=== PATIENT | male | born 1980 | race Caucasian/White ===

== ENCOUNTER 2017-11-25 12:10 | Emergency (ER) | payer OTHER ==
[2014-11-16 14:32] VITALS: BMI 31.9
[~2017-11-25 12:10] MED LIST: BYSTOLIC5 MG PO; CHANTIX 1 MG TAB1 MG PO; CLEOCIN HCL150 MG PO; HUMALOG 30100 UNITS/ SC; HYDROCODONE-APA1 TAB PO; LASIX20 MG PO; LEXAPRO10 MG PO; NORVASC10 MG PO; SYNTHROID50 MCG PO; XANAX0.5 MG PO
[2017-11-25 13:08] LABS: BASOPHILS 0.4 % (0-2); EOSINOPHILS 2.9 % (0-7); HEMATOCRIT 33.9 % (42.0-54.0); HEMOGLOBIN 11.4 g/dL (13.5-17.5); IMMATURE GRANULOCYTES 1.2 % (0-5); LYMPHOCYTES 18.4 % (15-50); MCH 27.7 pg (26.0-34.0); MCHC 33.6 g/dL (31.0-37.0); MCV 82.3 fL (80.0-100.0); MEAN PLATELET VOLUME 10.2 fL (7.4-10.4); NEUTROPHILS 69.1 % (40-80); PLATELET COUNT 207 10x3/uL (130-400); RBC 4.12 10x6/uL (4.20-6.10); RDW 13.6 % (11.5-14.5); WBC 10.3 10x3/uL (4.8-10.8)
[2017-11-25 13:28] LABS: ALBUMIN 3.2 g/dL (3.4-5.0); ANION GAP 15.5 mmol/L (8-16); BILIRUBIN - TOTAL 0.26 mg/dL (0.2-1.3); CALCIUM 8.5 mg/dL (8.5-10.1); CARBON DIOXIDE 23.5 mmol/L (21.0-32.0); CREATININE - SERUM 3.3 mg/dL (0.6-1.3); PROTEIN - SERUM 6.3 g/dL (6.4-8.2)
[2017-11-25 15:01] LABS: MAGNESIUM - SERUM 1.6 mg/dL (1.8-2.4)
[2017-11-25 15:20] LABS: KETONE - SERUM NEGATIVE (NEGATIVE); TROPONIN-I < 0.017 ng/mL (0.000-0.060)
== END 2017-11-25 18:05 | disposition home or self-care (01) ==
LOC: D.ER 12:10
PROVIDERS: Emergency Medicine; Physician Assistant
DX: I95.9 Hypotension, unspecified (principal); R42 Dizziness and giddiness; E11.65 Type 2 diabetes mellitus with hyperglycemia; Z79.4 Long term (current) use of insulin; Z96.41 Presence of insulin pump (external) (internal); E87.5 Hyperkalemia; N28.9 Disorder of kidney and ureter, unspecified; I10 Essential (primary) hypertension; I48.91 Unspecified atrial fibrillation; Z95.0 Presence of cardiac pacemaker

== ENCOUNTER 2018-07-11 11:53 | Inpatient (IN) | payer OTHER ==
[2018-07-11] VITALS (17 sets, daily range): BP systolic 68–199; BP diastolic 36–96; BMI 34.7
[~2018-07-11] VITALS: Ht 188 cm; Wt 128.7 kg
--- NOTE | ~2018-07-11 | CN ---
PATIENT NAME:MARY ANNE MERIDA MEDICAL RECORD: [id number] : 78 LOCATION:[facility]2308 ADMIT DATE: 07/11/18 ACCOUNT: [id number] CONSULTING PHYSICIAN: LINK DIAL MD REFERRING PHYSICIAN: LINK DIAL MD DATE OF CONSULTATION: 07/11/2018 MEDICAL CONSULTATION ADMITTING PHYSICIAN: Aston Kapadia MD REASON FOR ADMISSION: Acute onset of hypotension, bradycardia. HISTORY OF PRESENT ILLNESS: The patient is a 37-year-old male who has been a diabetic, on insulin pump since age 6. [address] Leighton Michelle for hypertension and edema management. More recently, he had seen me and told me that he had been switched from Lasix to torsemide and had marked improvement in his diuresis. His peripheral edema had improved and he is quite pleased. His creatinine has been stable at approximately 3.3 for some time. The patient apparently was at work today, his took him to lunch, he did not feel well after work and became so ill that they came into the Emergency Room. While speaking to the Emergency Room physician, he began to twitch and eventually coded. He became hypotensive, was intubated with difficulty by anesthesia. His potassium was found to be 7, creatinine was 4. He was taken emergently to the labor conciliator where a distal 80% RCA lesion was stented by Dr. Kapadia. He remains on the ventilator currently, there is concern for aspiration. I have spoken with his while in the ED. PAST MEDICAL HISTORY: Type 1 diabetes mellitus, chronic renal insufficiency stage III, diabetic retinopathy with macular edema, on Avastin intraocular injections, essential hypertension with negative renal artery MRI earlier in the year, hypothyroidism, hypogonadism, on testosterone replacement. PAST SURGICAL HISTORY: Appendectomy in 2006, had cataract surgery in 2017, cholecystectomy. MEDICATIONS: Current medications are torsemide 20 mg 2 tabs a day, verapamil ER 240 mg b.i.d., Synthroid 125 mcg p.o. q.a.m., Cialis 2.5 mg daily, clonazepam 1 mg one-half tab b.i.d. p.r.n. anxiety, Diovan 80 mg b.i.d., vitamin D 50,000 units 1 p.o. by weekly, Bystolic 20 mg p.o. b.i.d., aspirin 325 mg a day, Veltassa 16.8 grams p.o. daily for hyperkalemia and metolazone 5 mg p.o. daily. ALLERGIES: PENICILLIN. SOCIAL HISTORY: Former smoker, drinks moderate alcohol. He does not use marijuana or illicit drugs. He is . His is a PhD in education and teaches at [employer]. He has 3 children. FAMILY HISTORY: Mother has stage IV lung cancer. Father has history of heart disease. REVIEW OF SYSTEMS: Currently unobtainable from the patient. PHYSICAL EXAMINATION: VITAL SIGNS: BMI of 34.7, temperature 96.4, pulse 50, respirations 16, blood CONSULT REPORT [id number] MARY ANNE MERIDA pressure 103/63, O2 saturation 100% on the ventilator. GENERAL: The patient is currently sedated on the vent. HEENT: Pupils are reactive sluggishly, but equal. Sclerae nonicteric. NECK: Supple. CHEST: Clear. HEART: Bradycardic without murmur. ABDOMEN: Obese, soft, nontender, no organomegaly. EXTREMITIES: Show 2+ pretibial edema in the knees distally bilaterally. NEUROLOGIC: No localizing neurologic signs. The patient is not alert currently. IMAGING: CT of the head did not show acute infarct or bleed. Chest x-ray showed cardiomegaly with pulmonary edema. LABORATORY DATA: White count was 14,000, H&H was 11.5 and 33.2 with normal diff. Sodium 128. Initial potassium was 7.6, after treatment is 4 range currently. Initial glucose was 520 and now 456. Calcium 7.6, magnesium 1.7. Liver functions are normal. Initial cardiac enzymes are normal. Urine is pending. Toxicology negative. Serum ketones. INR 0.95. D-dimer 0.39. The patient went to the labor conciliator, had a distal 80% RCA lesion. That was stented by Dr. Kapadia successfully. ASSESSMENT: RCA critical stenosis post-angioplasty, mjmcu-ov-tewuoze renal insufficiency, severe hyperkalemia, hyperglycemia, type 1 diabetes mellitus, essential hypertension. PLAN: The patient has been seen by renal as well as pulmonary. He will be placed on empiric antibiotics and he will probably need emergent dialysis. Further workup pending clinical course. TRANSINT:[id number] Voice Confirmation ID: [id number] DOCUMENT ID: [id number] LINK DIAL MD at 2024 CC: [id number] DICTATION DATE: 07/11/18 174 STRING WINDING MACHINE OPERATOR: 07/11/18 192 ADM IN [place] [id number] [place] [id number]
--- NOTE | ~2018-07-11 | HP ---
PATIENT: MARY ANNE MERIDA MEDICAL RECORD: [id number] ACCOUNT: [id number] LOCATION:[facility] : 78 ADMISSION DATE: 07/11/18 HISTORY AND PHYSICAL EXAMINATION HISTORY OF PRESENT ILLNESS: A 37-year-old gentleman with family history of chronic renal insufficiency, diabetes mellitus, presented with chest pain and not feeling well, promptly coded in the ER, was emergently intubated. Initial ECG showed some ST elevation inferolaterally. Additionally, marked hyperkalemic as well as hyperglycemic and renal insufficiency, creatinine of 4. He had some seizure activity. CT of the head performed down in the ER showed no intracranial pathology. He is being brought to the laborer [facility] on an urgent basis. PHYSICAL EXAMINATION: GENERAL: Intubated and sedated. VITAL SIGNS: Pulse 70 and regular, blood pressure 116/72. NECK: No bruits noted. HEART: Regular. LUNGS: Fair air excursion. ABDOMEN: Soft, nontender. EXTREMITIES: Pulses actually palpable 2+. No edema. IMPRESSION: Brought to the laborer egg producing farm on an urgent basis. Intervention based on the above. TRANSINT:[id number] Voice Confirmation ID: [id number] DOCUMENT ID: [id number] BRE FULLER MD at 1630 CC: [id number] DICTATION DATE: 07/11/18 1511 GRAIN MIXER: 07/11/18 1523 ADM IN [place] [id number] [place] [address]
--- NOTE | ~2018-07-11 | OP ---
PATIENT NAME: MARY ANNE MERIDA MEDICAL RECORD: [id number] :78 LOCATION:D.[facility] D.2308 ADMISSION DATE:07/11/18 SURGEON: BRE FULLER MD DATE OF OPERATION: 07/11/2018 PROCEDURE: Left heart catheterization, selective coronary angiography, right femoral artery approach. CATHETERS: A 5-Niuean sheath, 5/4 left and right Pallavi, 5/4 pig. The procedure was well tolerated. We proceeded with urgent PTCA stenting. FINDINGS: Left ventriculography in the 30-degree DRISCOLL view: Mild inferior hypokinesis, but overall LV function preserved at 50%. CORONARY ANATOMY: LEFT MAIN: Left main is free of disease. LAD: Free of disease in the diagonal system. CIRCUMFLEX: Free of disease in the marginal system. RIGHT CORONARY ARTERY: Severe diffuse distal stenosis of about 80%. PLAN: Intervention momentarily. DESCRIPTION OF PROCEDURE: A 5-Niuean sheath was exchanged for a 6-Niuean sheath. A hockey stick guide catheter provided excellent guide catheter support followed by a 300 cm Whisper wire, which was placed across the totally occluded right down this portion of vessel. Stents deployed were a 34 mm x 3.0 Blake drug-eluting stent proximally and a 3.0 x 24 mm Blake drug-eluting stent distally. Final angiography shows excellent resolution of 80% diffuse stenosis, no significant residual. KAREEN flow was 3 throughout the procedure. Integrilin was used during the case. Sheath closed with ExoSeal device. The patient was transferred to the ICU in critical condition, hyperkalemic, post-intervention respiratory failure, etc. TRANSINT:[id number] Voice Confirmation ID: [id number] DOCUMENT ID: [id number] BRE FULLER MD at 1630 CC: [id number] DICTATION DATE: 07/11/18 151 STUDIO SET UP WORKER: 07/11/18 1528 [place] [address]
--- NOTE | ~2018-07-11 | OP ---
PATIENT NAME: MARY ANNE MERIDA MEDICAL RECORD: [id number] :78 LOCATION:D[facility] D.2308 ADMISSION DATE:07/11/18 SURGEON: JERRY DIAS MD DATE OF OPERATION: 07/11/2018 PREOPERATIVE DIAGNOSES: 1. Need for IV access. 2. Acute on chronic kidney disease. 3. Hyperkalemia. 4. Acute respiratory failure, on the ventilator. 5. Coronary artery disease, status post PTCA with stenting. 6. Diabetes mellitus. POSTOPERATIVE DIAGNOSES: 1. Need for IV access. 2. Acute on chronic kidney disease. 3. Hyperkalemia. 4. Acute respiratory failure, on the ventilator. 5. Coronary artery disease, status post PTCA with stenting. 6. Diabetes mellitus. PROCEDURE: Left IJ 15-cm Trialysis catheter placement. SURGEON: Jerry Dias MD REPORT OF PROCEDURE: The patient's left chest was prepped and draped in sterile fashion. Using ultrasound guidance, a needle was used to cannulate the left internal jugular vein and a guidewire was advanced with ease. Over this wire, a dilator was placed followed by the Trialysis catheter. This catheter aspirated nonpulsatile dark blood and flushed easily in all 3 ports. This was sutured into place with 4-0 nylons and dressed appropriately. COMPLICATIONS: None. CONDITION: Stable. ANESTHESIA: General endotracheal. BLOOD LOSS: Minimal. Procedure done at the bedside. TRANSINT:[id number] Voice Confirmation ID: [id number] DOCUMENT ID: [id number] JERRY DIAS MD at 1041 CC: [id number] DICTATION DATE: 07/11/18 183 REVENUE DIRECTOR: 07/12/18 0047 ADM IN [facility] [address] [place] [address]
--- NOTE | ~2018-07-11 | HEMODYNAMI ---
PATIENT:MARY ANNE MERIDA MEDICAL RECORD: [id number] : 78 LOCATION:[place] ADMISSION DATE: 07/11/18 Generatedon:07/11/201815:20 Patient name: MARY ANNE MERIDA Patient #: [id number] SSN: : 1980 Date of study: 07/11/2018 Page: Of Hemodynamic Procedure Report Patient Data Patient Demographics First Name: MARY ANNE Gender: Male Last Name: MAGNOLIA : 1980 [facility] Initial: BRO Age: 37 year(s) Patient #: [id number] Race: Unknown Additional ID: [id number] Contact details [address]: [address] [place] [address] [place] State: [place] City: [place] Zip code: [address] Admission Admission Data Admission Date: 07/11/2018 Admission Time: 11:53 Admit Source: Emergency department Procedure Procedure Types Cath Procedure Diagnostic Procedure LHC LHC w/Coronaries PCI Procedure AMI/SVG/FURNACE LOADER PTCA or Stent AMI-BMS/ARY Initial Procedure Description Procedure Date Procedure Date: 07/11/2018 Procedure Start Time: 14:50 Procedure End Time: 15:17 Procedure Staff Name Function Cait Gilbert RT Scrub Wayne Caal RT Semiconductor Processing Technician Evelio Mark RN Nurse Aston Stoddard MD Performing Physician Nicholas Jasso RT Monitor Procedure Data Cath Procedure Fluoroscopy Diagnostic fluoroscopy Total fluoroscopy Time: 3.3 time: 3.3 min min Diagnostic fluoroscopy Total fluoroscopy dose: dose: 362.42 mGy 362.42 mGy Contrast Material Contrast Material Type Amount (ml) Isovue 300 87 Entry Location Entry Primary Successful Side Size Upsize Upsize Entry Closure Succes sful Closure Location (Fr) 1 (Fr) 2 (Fr) Remarks Device Remarks Femoral Right 6 Fr Exoseal artery Short Estimated blood loss: 10 ml Diagnostic catheters Device Type Used For End Catheter Placement MULTIPACK JL 4.0 5Fr Procedure catheter MULTIPACK 3DRC 5Fr Procedure catheter MULTIPACK Pigtail 5 Fr Procedure catheter Procedure Complications No complications Procedure Medications Medication Administration Route Dosage Oxygen 100 Lidocaine 2% added to field 20 Heparin Flush Bag added to field 2 bags (1000units/500ml NS) Fentanyl I.V. 100 mcg Heparin Bolus I.V. 5000 units Integrilin (Bolus I.V. 11.3 ml 2mg/ml) Fentanyl I.V. 100 mcg Fentanyl I.V. 100 mcg Fentanyl I.V. 100 mcg Hemodynamics Rest Heart Rate: 63 (bpm) Pressure Samples Time Site Value (mmHg) Purpose Heart Use Rate(bpm) 14:56 LV 142/21,25 Snapshot 58 Gradients Valve Time Site Site Mean SEP/DFP Peak To Heart Use 1 2 (mmHg) (sec/min) Peak Rate (mmHg) (bpm) Aortic 14:57 LV AO 64 Snapshots Pre Cath Intra NCS Post Cath Vital Signs Time Heart Resp SPO2 etCO2 NIBP (mmHg) Rhythm Pain Sedation Rate (ipm) (%) (mmHg) Status Level (bpm) 14:42:32 62 27 100 0 172/95(142) NSR 0 (11) 6(A) , No pain 14:47:09 63 24 100 0 181/93(151) NSR 0 (11) 6(A) , No pain 14:51:43 60 24 100 0 155/87(131) NSR 0 (11) 6(A) , No pain 14:56:11 57 21 100 0 146/84(116) NSR 0 (11) 6(A) , No pain 15:00:36 58 22 100 0 157/90(125) NSR 0 (11) 6(A) , No pain 15:06:30 63 27 100 0 202/159(169) NSR 0 (11) 6(A) , No pain 15:11:04 59 22 100 0 154/89(127) NSR 0 (11) 6(A) , No pain 15:15:35 58 28 100 0 148/82(115) NSR 0 (11) 10(A) , No pain Medications Time Medication Route Dose Verified Delivered Reason No francisco Effectiveness by by 14:42:43 Oxygen 100% Aston Clancy intubated RichiLeighton Stoddard MD, MD 14:42:58 Lidocaine 2% added 20ml vial Aston Clancy for local to [facility] anesthetic field MD JARVIS 14:43:08 Heparin Flush added 2 bags Aston Clancy used for Bag to [facility] procedure (1000units/500ml field MD JARVIS NS) 14:48:37 Fentanyl I.V. 100 mcg Aston Fraser pt moving St Leighton trinh MD 14:57:04 Heparin Bolus I.V. 5000 Aston Clancy for ve rified units [facility] anticoagulation with eduin JARVIS MD 15:00:10 Integrilin I.V. 11.3 ml Aston Clancy Per physician Wayne stekasey 8.7 (Bolus 2mg/ml) [facility] ml of vial MD JARVIS 15:05:40 Fentanyl I.V. 100 mcg Aston Vides RN, MD 15:12:54 Fentanyl I.V. 100 mcg Aston Vides RN, MD 15:19:51 Fentanyl I.V. 100 mcg Aston Fraser for sedation St Leighton Mark RN, MD Procedure Log Time Note 14:21:[address] FOR CT OF HEAD PER ER PHYSICIAN 14:22:10 Admit Source: Emergency department 14:22:17 ACC Patient presents with STEMI CCS Anginal Class 4--Inability to carry out any physical activity w/o angina. Angina may occur at rest. 14:22:25 Wayne Caal RT(R) sent for patient. Start room use. 14:22:26 Time tracking: Regular hours (M-F 7:00 - 5:00) 14:22:31 Plan of Care:Hemodynamics will remain stable., Cardiac rhythm will remain stable., Comfort level will be maintained., Respiratory function will remain adequate., Patient/ family verbilizes understanding of procedure., Procedure tolerated without complication., Recovers from procedure without complications.. 14:31:25 PATIENT CODED IN ER 14:31:43 Patient received from Other to CCL 3 Alert and oriented. Tansferred to table in Supine position. 14:31:44 Warm blankets applied, and liliana hugger turned on for patient comfort. 14:31:45 Correct patient and procedure confirmed by team. 14:37:46 ECG and BP/O2 sat monitors applied to patient. 14:41:06 Vital chart was started 14:42:43 Oxygen 100% intubated was administered by Aston Stoddard MD; ; 14:42:58 Lidocaine 2% 20ml vial added to field was administered by Aston Stoddard MD; for local anesthetic; 14:43:08 Heparin Flush Bag (1000units/500ml NS) 2 bags added to field was administered by Aston Stoddard MD; used for procedure; 14:43:56 Patient arrives emergently. 14:44:37 Pt arrived to Topographical Engineer intubated and unresponsive. Unable to answer questions. 14:44:41 Baseline sample Acquired. 14:44:45 Rhythm: sinus rhythm 14:44:47 Full Disclosure recording started 14:44:51 Pre-procedure instructions explained to patient. 14:44:51 H&P Date Dictated: 07/11/2018 Emergent; H&P N/A. 14:44:52 Pre-op teaching completed and patient verbalized understanding. 14:44:53 Family in waiting room. 14:44:55 Patient NPO since Midnight. 14:45:08 Is the patient allergic to Iodine/contrast media? No. 14:45:11 Is patient on blood thinner?Unknown 14:45:13 Patient diabetic? Unknown. 14:45:16 Previous problem with sedation/anesthesia? Unknown ? 14:45:17 Snore? Unknown 14:45:18 Sleep apnea? Unknown 14:45:19 Deviated septum? Unknown 14:45:21 Opens mouth fully? Unknown 14:45:22 Sticks out tongue? Unknown 14:45:25 Airway obstruction? Unknown ? 14:45:27 Dentures? Unknown ? 14:45:29 Pre procedure: right dorsailis pedis pulse 1+ Palpable, but thready & weak; easily obliterated 14:45:39 IV patent on arrival in left IJ with 0.9% NaCl at KVO. 14:45:43 Lab results completed and on chart. 14:45:46 Right groin area was prepped with chlora-prep and draped in sterile fashion 14:45:47 Alarms reviewed by R. N. 14:45:48 Sharps counted by scrub and verified by R.N. 14:48:21 Physician arrived 14:48:22 Final Timeout: patient, procedure, and site verified with staff and physician. All members of the team are in agreement. 14:48:22 --------ALL STOP TIME OUT------ 14:48:24 Right groin site verified by team. 14:48:27 Physical assessment completed. ASA score P 5 - A moribund patient who is not expected to survive without the operation as per Aston Stoddard MD. 14:48:37 Fentanyl 100 mcg I.V. was administered by Evelio Mark RN; ; pt moving extremities 14:48:42 Sedation plan: IV Moderate Sedation Medication:Versed, Fentanyl 14:49:57 Use device set Femoral Dx 14:49:58 Bag Decanter (2001S) opened to sterile field. 14:49:58 ACIST Syringe (52362) opened to sterile field. 14:49:59 ACIST Manifold (61892) opened to sterile field. 14:49:59 ACIST Hand Control (33908) opened to sterile field. 14:50:00 Tegaderm 4 x 4 (1626W) opened to sterile field. 14:50:06 DIAGNOSTIC WIRE .035 260cm J wire (799614) opened to sterile field. 14:50:06 Medline Cath Pack (OAOC49354) opened to sterile field. 14:50:07 DIAGNOSTIC Multipack 5Fr catheter set (VG5115) opened to sterile field. 14:50:15 SHEATH Prelude 6Fr 0.035 (ZFQ-8G-66-035) opened to sterile field. 14:50:27 WHISPER 300cm guide wire (0380001ON) opened to sterile field. 14:50:28 INFLATOR Merit BasixCompak (RS4655) opened to sterile field. 14:50:32 Procedure started. 14:50:36 Local anesthetic to right femoral artery with Lidocaine 2% by Aston Stoddard MD.INITIAL ACCESS ONLY 14:50:37 A 6 Fr Short sheath was inserted into the Right Femoral artery 14:50:37 Zero performed for pressure channel P1 14:50:47 Zero performed for pressure channel P1 14:50:52 Zero performed for pressure channel P1 14:51:58 A MULTIPACK JL 4.0 5Fr catheter was advanced over the wire and used for Procedure. 14:52:58 LCA angiography performed. 14:54:45 Catheter exchanged over wire. 14:54:51 A MULTIPACK 3DRC 5Fr catheter was advanced over the wire and used for Procedure. 14:55:04 RCA angiography performed. 14:56:31 Catheter exchanged over wire. 14:56:36 A MULTIPACK Pigtail 5 Fr catheter was advanced over the wire and used for Procedure. 14:56:40 LV hemodynamics recorded. 14:56:48 Injector settings: Ml/sec: 10, Volume: 20, 14:56:53 EF : 50 % 14:57:00 LV gram done using DRISCOLL 14:57:04 Heparin Bolus 5000 units I.V. was administered by Aston Stoddard MD; for anticoagulation; verified with eduin 14:57:26 GUIDE 6FR HS I SH catheter ([id number]) opened to sterile field. 14:57:31 Catheter removed. 14:57:37 6 Fr hs 1 sh guide catheter was inserted over the wire 14:59:00 whisper wire advanced. 14:59:40 Wire advanced across lesion. 15:00:10 Integrilin (Bolus 2mg/ml) 11.3 ml I.V. was administered by Aston Stoddard MD; Per physician; Wasted 8.7 ml of vial 15:00:35 Place stent Inflation Number: 1 A FAITH OTW 3.0 x 26 stent ([id number]) was prepped and advanced across the Mid RCA. The stent was deployed at 14 EZIO for 0:30 (min:sec). 15:00:49 Stent catheter was removed intact over wire. 15:03:25 Place stent Inflation Number: 1 A FAITH OTW 3.0 x 38 stent ([id number]) was prepped and advanced across the Prox RCA. The stent was deployed at 14 EZIO for 0:30 (min:sec). 15:03:47 Stent catheter was removed intact over wire. 15:03:48 Guide catheter removed. 15:03:48 Wire removed. 15:05:28 EXOSEAL 6Fr (EX600) opened to sterile field. 15:05:40 Fentanyl 100 mcg I.V. was administered by Evelio Mark RN; ; 15:07:36 Sheath removed intact; hemostasis achieved with Exoseal to the Right Femoral artery. 15:07:38 Procedure ended.(Physican Out) 15:10:32 Fluoroscopy time 03.30 minutes. 15:10:45 Fluoroscopy dose: 362.42 mGy 15:10:45 Flurop Dose total: 362.42 15:10:50 Contrast amount:Isovue 300 87ml. 15:10:59 Sharps counted by scrub and verified by R.N. 15:11:27 Insertion/operative site no bleeding no hematoma. 15:12:54 Fentanyl 100 mcg I.V. was administered by Evelio Mark RN; ; 15:13:02 Post-op/insertion site Right Femoral artery dressed using a 4 x 4 and Tegaderm. 15:13:05 Post right femoral artery:stable, soft, clean and dry 15:13:07 Post Procedure Pulses reassessed and unchanged 15:13:11 Post-procedure physical assessment completed. ASA score P 5 - A moribund patient who is not expected to survive without the operation as per Aston Stoddard MD. 15:13:35 Post procedure rhythm: sinus rhythm 15:13:38 Estimated blood loss: 10 ml 15:13:40 Post procedure instruction explained to patient.Patient verbalizes understanding. 15:13:53 Patient needs reinforcement of post procedure teaching. 15:14:42 Procedure type changed to Cath procedure, Diagnostic procedure, LHC, LHC w/Coronaries, PCI procedure, AMI/SVG/FURNACE LOADER PTCA or Stent, AMI-BMS/ARY Initial 15:16:28 Procedure and supply charges have been captured, reviewed, submitted and are correct. 15:16:56 Procedure Complication : No complications 15:17:37 Vital chart was stopped 15:17:38 See physician's report for complete and final results. 15:17:39 Report given to ICU. 15:17:42 Patient transfered to ICU with Stretcher. 15:17:43 Full Disclosure recording stopped 15:17:43 Procedure ended. 15:17:47 End room use (Document Last) 15:19:51 Fentanyl 100 mcg I.V. was administered by Evelio Mark RN; for sedation; Intervention Summary Intervention Notes Time ActionType Lesion and Equipment Action# Pressure Duration Attributes Used 15:00:35 Place stent Mid RCA FAITH OTW 3.0 1 14 00:30 x 26 stent ([id number]) 15:03:25 Place stent Prox RCA FAITH OTW 3.0 1 14 00:30 x 38 stent ([id number]) Device Usage Item Name Manufacture Quantity Catalog Hospital Part Current M inimal Lot# / Number Charge Number Stock Stock Serial# Code ACIST Syringe Acist 1 94393 782474 379365 460868 2 0 (48340) Medical Sim[employer] Inc Bag Decanter Microtek 1 151915 48508 097305 5 () Medical Inc. ACIST Hand Acist 1 59146 956192 258331 732880 5 Control (75708) Medical Systems Inc ACIST Manifold Acist 1 68380 591345 909085 798359 5 (09561) Medical Systems Inc Tegaderm 4 x 4 3M 1 1626W 260245 886522 772786 5 (1626W) Medline Cath Cardinal 1 [id number] 222638 46083 094008 5 eIQ [employer] Health ([id number]) DIAGNOSTIC WIRE St Tesfaye 1 226905 808576 427868 678284 3 0 .035 260cm J wire (953309) DIAGNOSTIC Cardinal 1 WA4542 157289 06373 789583 3 0 Multipack 5Fr Health catheter set (HW9283) SHEATH Prelude Merit 1 PXP-9P-93-35 615199 0599907 984674 5 6Fr 0.035 Medical (QXU-4C-77-035) WHISPER 300cm Rodríguez 1 [id number] 281850 258861 802520 5 guide wire Vascular ([id number]) INFLATOR Merit Merit 1 AV1491 631266 386264 467713 1 5 BasMarakana Medical (ET9556) MULTIPACK JL Cardinal 1 784988 5 4.0 5Fr Health catheter MULTIPACK 3DRC Cardinal 1 425129 5 5Fr catheter Health MULTIPACK Cardinal 1 721965 5 Pigtail 5 Fr Health catheter GUIDE 6FR HS I Medtronic 1 [id number] 822065 22944 305999 1 SH catheter ([id number]) FAITH OTW 3.0 x Medtronic 1 [id number] 110838 5149584 483885 5 [id number] 26 stent ([id number]) FAITH OTW 3.0 x Medtronic 1 [id number] 643084 6605654 998649 5 [id number] 38 stent ([id number]) EXOSEAL 6Fr Cardinal 1 EX600 083747 075995 927025 1 0 (EX600) Health Signature Audit [place] Stage Time Signature Unsigned Intra-Procedure 07/11/2018 Nicholas Jasso RT(R) 3:18:10 PM RT(R) 07/11/2018 3:19:11 PM Intra-Procedure 07/11/2018 Nicholas Jasso 3:20:04 PM RT(R) Signatures Monitor : Nicholas Jasso RT Signature : Date : Time : [address] [place] [address]
[2018-07-11] MEDS ORDERED: CALAN120 MG PO (12:21)
[2018-07-11] MEDS ORDERED: DEMADEX20 MG PO (12:21)
[2018-07-11] MEDS ORDERED: KLONOPIN1 MG PO (12:22)
[2018-07-11] MEDS ORDERED: BENICAR20 MG PO (12:22)
[2018-07-11] MEDS ORDERED: VELTASSA8.4 GM PO ×2 (12:22→21:08)
[2018-07-11 12:59] LABS: BASOPHILS 0.4 % (0-2); EOSINOPHILS 2.5 % (0-7); HEMATOCRIT 33.2 % (42.0-54.0); HEMOGLOBIN 11.5 g/dL (13.5-17.5); IMMATURE GRANULOCYTES 1.3 % (0-5); LYMPHOCYTES 21.5 % (15-50); MCH 28.5 pg (26.0-34.0); MCHC 34.6 g/dL (31.0-37.0); MCV 82.2 fL (80.0-100.0); MEAN PLATELET VOLUME 11.1 fL (7.4-10.4); MONOCYTES 6.3 % (2-11); PLATELET COUNT 198 10x3/uL (130-400); RBC 4.04 10x6/uL (4.20-6.10); WBC 14.3 10x3/uL (4.8-10.8)
[2018-07-11 13:16] LABS: KETONE - SERUM NEGATIVE (NEGATIVE)
[2018-07-11 13:42] LABS: INR 0.95 (0.85-1.17); PROTIME 12.2 SECONDS (11.6-15.0)
[2018-07-11 13:52] LABS: ALKALINE PHOSPHATASE 67 U/L (46-116); ALT (SGPT) 64 U/L (10-68); BILIRUBIN - TOTAL 0.28 mg/dL (0.2-1.3); CALC OSMOLALITY 292 mosm/kg (275-300); CALCIUM 7.6 mg/dL (8.5-10.1); CARBON DIOXIDE 24.7 mmol/L (21.0-32.0); CHLORIDE - SERUM 97 mmol/L (98-107); CKMB 2.2 U/L (0.0-3.6); CREATINE KINASE 44 UL (21-232); CREATININE - SERUM 4.2 mg/dL (0.6-1.3); MAGNESIUM - SERUM 1.7 mg/dL (1.8-2.4); SODIUM 128 mmol/L (136-145); TROPONIN-I < 0.017 ng/mL (0.000-0.060); UREA NITROGEN 50 mg/dL (7-18); eGFR NON AFRICAN AMERICAN 17 mL/min (90-120)
[2018-07-11 13:54] LABS: GLUCOSE 520 mg/dL (74-106); POTASSIUM - SERUM 7.6 mmol/L (3.5-5.1)
[2018-07-11] MEDS ORDERED: PAROXETINE HCL10 MG PO (21:06)
[2018-07-12] VITALS (23 sets, daily range): BP systolic 127–195; BP diastolic 57–89; BMI 37.7
[2018-07-12 03:54] LABS: BASOPHILS 0.2 % (0-2); EOSINOPHILS 0.1 % (0-7); HEMATOCRIT 30.2 % (42.0-54.0); HEMOGLOBIN 10.3 g/dL (13.5-17.5); IMMATURE GRANULOCYTES 0.3 % (0-5); LYMPHOCYTES 11.7 % (15-50); MCHC 34.1 g/dL (31.0-37.0); MCV 82.1 fL (80.0-100.0); MEAN PLATELET VOLUME 9.7 fL (7.4-10.4); MONOCYTES 6.5 % (2-11); NEUTROPHILS 81.2 % (40-80); RBC 3.68 10x6/uL (4.20-6.10)
[2018-07-12 03:56] LABS: PLATELET COUNT 130 10x3/uL (130-400); WBC 10.6 10x3/uL (4.8-10.8)
[2018-07-12 04:05] LABS: MAGNESIUM - SERUM 1.3 mg/dL (1.8-2.4)
[2018-07-12 07:05] LABS: ALBUMIN 2.8 g/dL (3.4-5.0); BILIRUBIN - TOTAL 0.34 mg/dL (0.2-1.3); CALCIUM 7.2 mg/dL (8.5-10.1); CARBON DIOXIDE 27.5 mmol/L (21.0-32.0); CREATININE - SERUM 4.3 mg/dL (0.6-1.3); POTASSIUM - SERUM 4.5 mmol/L (3.5-5.1); PROTEIN - SERUM 5.3 g/dL (6.4-8.2)
[2018-07-12 09:54] LABS: APPEARANCE HAZY (CLEAR); BACTERIA FEW /hpf (NONE SEEN); BILIRUBIN NEGATIVE (NEGATIVE); COLOR YELLOW (YELLOW); EPITHELIAL CELLS 0-5 /hpf (0-5); GLUCOSE NEGATIVE (NEGATIVE); KETONE NEGATIVE (NEGATIVE); MUCUS <1+ /lpf (NONE SEEN); NITRITE NEGATIVE (NEGATIVE); PROTEIN 3+ mg/dL (NEGATIVE); RED CELLS - URINE 0-5 /hpf (0-5); UROBILINOGEN NORMAL (NORMAL); WHITE CELLS - URINE OCC /hpf (0-5)
[2018-07-13] VITALS (24 sets, daily range): BP systolic 103–165; BP diastolic 59–75
[2018-07-13 06:07] LABS: BASOPHILS 0.3 % (0-2); EOSINOPHILS 1.8 % (0-7); HEMATOCRIT 26.7 % (42.0-54.0); HEMOGLOBIN 8.8 g/dL (13.5-17.5); IMMATURE GRANULOCYTES 0.2 % (0-5); LYMPHOCYTES 14.3 % (15-50); MCH 27.8 pg (26.0-34.0); MCV 84.5 fL (80.0-100.0); MEAN PLATELET VOLUME 10.4 fL (7.4-10.4); MONOCYTES 6.2 % (2-11); NEUTROPHILS 77.2 % (40-80); PLATELET COUNT 109 10x3/uL (130-400); RBC 3.16 10x6/uL (4.20-6.10); RDW 14.3 % (11.5-14.5); WBC 10.5 10x3/uL (4.8-10.8)
[2018-07-13 06:49] LABS: ALBUMIN 2.2 g/dL (3.4-5.0); ANION GAP 12.6 mmol/L (8-16); BILIRUBIN - TOTAL 0.49 mg/dL (0.2-1.3); CARBON DIOXIDE 24.6 mmol/L (21.0-32.0); CREATININE - SERUM 4.9 mg/dL (0.6-1.3); POTASSIUM - SERUM 4.2 mmol/L (3.5-5.1); PROTEIN - SERUM 5.4 g/dL (6.4-8.2); VANCOMYCIN - RANDOM 10.9 ug/mL (10.0-20.0)
[2018-07-13 06:50] LABS: MAGNESIUM - SERUM 2.1 mg/dL (1.8-2.4); PHOSPHOROUS 4.6 mg/dL (2.5-4.9)
[2018-07-14] VITALS (25 sets, daily range): BP systolic 99–178; BP diastolic 57–87
[2018-07-14 06:03] LABS: BASOPHILS 0.2 % (0-2); EOSINOPHILS 4.2 % (0-7); HEMATOCRIT 24.4 % (42.0-54.0); HEMOGLOBIN 8.2 g/dL (13.5-17.5); IMMATURE GRANULOCYTES 0.6 % (0-5); LYMPHOCYTES 12.1 % (15-50); MCH 28.5 pg (26.0-34.0); MCHC 33.6 g/dL (31.0-37.0); MCV 84.7 fL (80.0-100.0); MEAN PLATELET VOLUME 10.2 fL (7.4-10.4); MONOCYTES 6.9 % (2-11); PLATELET COUNT 111 10x3/uL (130-400); RBC 2.88 10x6/uL (4.20-6.10); RDW 13.9 % (11.5-14.5); WBC 9.7 10x3/uL (4.8-10.8)
[2018-07-14 06:19] LABS: ANION GAP 14.5 mmol/L (8-16); BILIRUBIN - TOTAL 0.51 mg/dL (0.2-1.3); CARBON DIOXIDE 23.6 mmol/L (21.0-32.0); CREATININE - SERUM 5.7 mg/dL (0.6-1.3); PHOSPHOROUS 3.9 mg/dL (2.5-4.9); POTASSIUM - SERUM 4.1 mmol/L (3.5-5.1); PROTEIN - SERUM 5.6 g/dL (6.4-8.2); VANCOMYCIN - RANDOM 23.7 ug/mL (10.0-20.0)
[2018-07-15] VITALS (24 sets, daily range): BP systolic 100–143; BP diastolic 49–79; Ht 188 cm; Wt 128.7 kg
[2018-07-15 04:26] LABS: BASOPHILS 0.3 % (0-2); EOSINOPHILS 5.8 % (0-7); HEMATOCRIT 25.5 % (42.0-54.0); HEMOGLOBIN 8.5 g/dL (13.5-17.5); IMMATURE GRANULOCYTES 0.8 % (0-5); LYMPHOCYTES 15.8 % (15-50); MCH 28.3 pg (26.0-34.0); MCHC 33.3 g/dL (31.0-37.0); MEAN PLATELET VOLUME 10.4 fL (7.4-10.4); MONOCYTES 8.5 % (2-11); NEUTROPHILS 68.8 % (40-80); PLATELET COUNT 133 10x3/uL (130-400); RDW 14.1 % (11.5-14.5); WBC 8.7 10x3/uL (4.8-10.8)
[2018-07-15 04:50] LABS: BILIRUBIN - TOTAL 0.52 mg/dL (0.2-1.3); CALCIUM 7.3 mg/dL (8.5-10.1); CARBON DIOXIDE 24.9 mmol/L (21.0-32.0); CREATININE - SERUM 5.8 mg/dL (0.6-1.3); POTASSIUM - SERUM 3.9 mmol/L (3.5-5.1); PROTEIN - SERUM 6.1 g/dL (6.4-8.2); VANCOMYCIN - RANDOM 17.9 ug/mL (10.0-20.0)
[2018-07-16] VITALS (25 sets, daily range): BP systolic 103–150; BP diastolic 49–88
[2018-07-16 05:45] LABS: BASOPHILS 0.1 % (0-2); EOSINOPHILS 3.9 % (0-7); HEMATOCRIT 25.5 % (42.0-54.0); HEMOGLOBIN 8.3 g/dL (13.5-17.5); IMMATURE GRANULOCYTES 1.7 % (0-5); LYMPHOCYTES 8.2 % (15-50); MCH 27.9 pg (26.0-34.0); MCHC 32.5 g/dL (31.0-37.0); MCV 85.9 fL (80.0-100.0); MEAN PLATELET VOLUME 10.3 fL (7.4-10.4); MONOCYTES 7.3 % (2-11); NEUTROPHILS 78.8 % (40-80); PLATELET COUNT 143 10x3/uL (130-400); RBC 2.97 10x6/uL (4.20-6.10); RDW 14.1 % (11.5-14.5); WBC 9.3 10x3/uL (4.8-10.8)
[2018-07-16 06:04] LABS: ALBUMIN 2.1 g/dL (3.4-5.0); BILIRUBIN - TOTAL 0.58 mg/dL (0.2-1.3); CALCIUM 7.8 mg/dL (8.5-10.1); CARBON DIOXIDE 21.3 mmol/L (21.0-32.0); PROTEIN - SERUM 6.4 g/dL (6.4-8.2); VANCOMYCIN - RANDOM 14.9 ug/mL (10.0-20.0)
[2018-07-16 06:05] LABS: POTASSIUM - SERUM 5.3 mmol/L (3.5-5.1)
[2018-07-17] VITALS (24 sets, daily range): BP systolic 123–186; BP diastolic 57–95
[2018-07-17 04:53] LABS: BASOPHILS 0.2 % (0-2); EOSINOPHILS 3.7 % (0-7); HEMATOCRIT 26.3 % (42.0-54.0); HEMOGLOBIN 8.5 g/dL (13.5-17.5); IMMATURE GRANULOCYTES 3.9 % (0-5); LYMPHOCYTES 7.9 % (15-50); MCH 27.6 pg (26.0-34.0); MCHC 32.3 g/dL (31.0-37.0); MCV 85.4 fL (80.0-100.0); MEAN PLATELET VOLUME 10.4 fL (7.4-10.4); MONOCYTES 11.6 % (2-11); NEUTROPHILS 72.7 % (40-80); PLATELET COUNT 164 10x3/uL (130-400); RBC 3.08 10x6/uL (4.20-6.10); RDW 13.9 % (11.5-14.5)
[2018-07-17 05:23] LABS: ANION GAP 16.3 mmol/L (8-16); CARBON DIOXIDE 25.4 mmol/L (21.0-32.0); CREATININE - SERUM 7.4 mg/dL (0.6-1.3); MAGNESIUM - SERUM 2.3 mg/dL (1.8-2.4); POTASSIUM - SERUM 4.7 mmol/L (3.5-5.1); VANCOMYCIN - RANDOM 19.4 ug/mL (10.0-20.0)
[2018-07-17 07:37] LABS: HEPATITIS C ANTIBODY <0.1 (0.0-0.9)
[2018-07-18] VITALS (23 sets, daily range): BP systolic 117–218; BP diastolic 69–90
[2018-07-18 04:15] LABS: HEPATITIS BE ANTIGEN Negative (Negative)
[2018-07-18 04:18] LABS: BASOPHILS 0.3 % (0-2); EOSINOPHILS 5.5 % (0-7); HEMATOCRIT 28.5 % (42.0-54.0); HEMOGLOBIN 9.5 g/dL (13.5-17.5); IMMATURE GRANULOCYTES 6.9 % (0-5); LYMPHOCYTES 13.4 % (15-50); MCH 27.9 pg (26.0-34.0); MCHC 33.3 g/dL (31.0-37.0); MCV 83.6 fL (80.0-100.0); MEAN PLATELET VOLUME 10.3 fL (7.4-10.4); NEUTROPHILS 63.9 % (40-80); PLATELET COUNT 196 10x3/uL (130-400); RBC 3.41 10x6/uL (4.20-6.10); RDW 13.7 % (11.5-14.5); WBC 12.1 10x3/uL (4.8-10.8)
[2018-07-18 04:39] LABS: ANION GAP 16.6 mmol/L (8-16); CALCIUM 8.3 mg/dL (8.5-10.1); MAGNESIUM - SERUM 2.3 mg/dL (1.8-2.4); VANCOMYCIN - RANDOM 12.1 ug/mL (10.0-20.0)
[2018-07-18 04:41] LABS: CREATININE - SERUM 5.5 mg/dL (0.6-1.3); POTASSIUM - SERUM 3.6 mmol/L (3.5-5.1)
[2018-07-19] VITALS (24 sets, daily range): BP systolic 116–189; BP diastolic 65–96
[2018-07-19 03:53] LABS: ANION GAP 14.6 mmol/L (8-16); CARBON DIOXIDE 24.8 mmol/L (21.0-32.0); CREATININE - SERUM 6.5 mg/dL (0.6-1.3); MAGNESIUM - SERUM 2.6 mg/dL (1.8-2.4); POTASSIUM - SERUM 3.4 mmol/L (3.5-5.1)
[2018-07-19 04:01] LABS: HEMATOCRIT 25.7 % (42.0-54.0); LYMPHOCYTES 13.8 % (15-50); MCH 28.5 pg (26.0-34.0); MEAN PLATELET VOLUME 9.4 fL (7.4-10.4); NEUTROPHILS 75.3 % (40-80); PLATELET COUNT 233 10x3/uL (130-400); RBC 3.16 10x6/uL (4.20-6.10); WBC 12.6 10x3/uL (4.8-10.8)
[2018-07-19 04:02] LABS: MCV 81.3 fL (80.0-100.0)
[2018-07-20] VITALS (24 sets, daily range): BP systolic 101–157; BP diastolic 59–76
[2018-07-20 00:01] LABS: HEMATOCRIT 22.4 % (42.0-54.0); HEMOGLOBIN 7.7 g/dL (13.5-17.5)
[2018-07-20 06:19] LABS: BASOPHILS 0.4 % (0-2); EOSINOPHILS 5.3 % (0-7); HEMATOCRIT 22.6 % (42.0-54.0); HEMOGLOBIN 7.6 g/dL (13.5-17.5); IMMATURE GRANULOCYTES 5.6 % (0-5); LYMPHOCYTES 15.7 % (15-50); MCH 27.6 pg (26.0-34.0); MCHC 33.6 g/dL (31.0-37.0); MCV 82.2 fL (80.0-100.0); MEAN PLATELET VOLUME 10.1 fL (7.4-10.4); MONOCYTES 7.8 % (2-11); NEUTROPHILS 65.2 % (40-80); PLATELET COUNT 264 10x3/uL (130-400); RBC 2.75 10x6/uL (4.20-6.10); RDW 13.5 % (11.5-14.5); WBC 15.5 10x3/uL (4.8-10.8)
[2018-07-20 06:36] LABS: ANION GAP 16.9 mmol/L (8-16); CALCIUM 7.7 mg/dL (8.5-10.1); CARBON DIOXIDE 24.6 mmol/L (21.0-32.0); CREATININE - SERUM 5.6 mg/dL (0.6-1.3); MAGNESIUM - SERUM 2.4 mg/dL (1.8-2.4); POTASSIUM - SERUM 3.5 mmol/L (3.5-5.1)
[2018-07-21] VITALS (24 sets, daily range): BP systolic 97–163; BP diastolic 53–85
[2018-07-21 06:26] LABS: BASOPHILS 0.4 % (0-2); EOSINOPHILS 5.7 % (0-7); HEMATOCRIT 22.6 % (42.0-54.0); HEMOGLOBIN 7.6 g/dL (13.5-17.5); IMMATURE GRANULOCYTES 4.5 % (0-5); LYMPHOCYTES 16.5 % (15-50); MCH 27.6 pg (26.0-34.0); MCHC 33.6 g/dL (31.0-37.0); MCV 82.2 fL (80.0-100.0); MEAN PLATELET VOLUME 9.8 fL (7.4-10.4); MONOCYTES 6.2 % (2-11); NEUTROPHILS 66.7 % (40-80); PLATELET COUNT 291 10x3/uL (130-400); RBC 2.75 10x6/uL (4.20-6.10); RDW 13.7 % (11.5-14.5); WBC 16.8 10x3/uL (4.8-10.8)
[2018-07-21 06:36] LABS: ANION GAP 18.3 mmol/L (8-16); CALCIUM 7.7 mg/dL (8.5-10.1); CARBON DIOXIDE 23.1 mmol/L (21.0-32.0); CREATININE - SERUM 6.8 mg/dL (0.6-1.3); MAGNESIUM - SERUM 2.8 mg/dL (1.8-2.4); POTASSIUM - SERUM 3.4 mmol/L (3.5-5.1)
[2018-07-22] VITALS (13 sets, daily range): BP systolic 112–149; BP diastolic 62–83
[2018-07-22 04:21] LABS: HEMATOCRIT 22.6 % (42.0-54.0); HEMOGLOBIN 7.8 g/dL (13.5-17.5); MCH 28.1 pg (26.0-34.0); MCHC 34.5 g/dL (31.0-37.0); MCV 81.3 fL (80.0-100.0); MEAN PLATELET VOLUME 9.8 fL (7.4-10.4); PLATELET COUNT 369 10x3/uL (130-400); RBC 2.78 10x6/uL (4.20-6.10); RDW 13.5 % (11.5-14.5); WBC 24.5 10x3/uL (4.8-10.8)
[2018-07-22 04:32] LABS: ANION GAP 13.5 mmol/L (8-16); CALCIUM 7.8 mg/dL (8.5-10.1); CARBON DIOXIDE 26.5 mmol/L (21.0-32.0); CREATININE - SERUM 7.1 mg/dL (0.6-1.3)
[2018-07-22 04:39] LABS: PHOSPHOROUS 8.4 mg/dL (2.5-4.9)
[2018-07-22 05:17] LABS: EOSINOPHILS 1 % (0-7); LYMPHOCYTES 17 % (15-50); MONOCYTES 5 % (2-11); NEUTROPHILS 67 % (40-80); PLATELET ESTIMATE NORMAL
== END 2018-07-22 15:24 | disposition short-term general hospital (02) | DRG 246 ==
LOC: D.ER 11:53 → D.CATH 11:53 → EDSTATUS 14:38 → D.ICU 15:40
PROVIDERS: Family Medicine; Internal Medicine Interventional Cardiology; Internal Medicine Nephrology; Internal Medicine Pulmonary Disease; Student in an Organized Health Care Education/Training Program
PROC: 05HN33Z Insertion of Infusion Device into Left Internal Jugular Vein, Percutaneous Approach (ICD-10-PCS; 2018-07-11)
PROC: B2111ZZ Fluoroscopy of Multiple Coronary Arteries using Low Osmolar Contrast (ICD-10-PCS; 2018-07-11)
PROC: B2151ZZ Fluoroscopy of Left Heart using Low Osmolar Contrast (ICD-10-PCS; 2018-07-11)
PROC: 4A023N7 Measurement of Cardiac Sampling and Pressure, Left Heart, Percutaneous Approach (ICD-10-PCS; 2018-07-11)
PROC: 5A1955Z Respiratory Ventilation, Greater than 96 Consecutive Hours (ICD-10-PCS; 2018-07-11)
PROC: 027035Z Dilation of Coronary Artery, One Artery with Two Drug-eluting Intraluminal Devices, Percutaneous Approach (ICD-10-PCS; principal; 2018-07-11 11:30)
PROC: 0BH17EZ Insertion of Endotracheal Airway into Trachea, Via Natural or Artificial Opening (ICD-10-PCS; 2018-07-11 11:30)
PROC: 05HM33Z Insertion of Infusion Device into Right Internal Jugular Vein, Percutaneous Approach (ICD-10-PCS; 2018-07-20)
DX: I24.9 Acute ischemic heart disease, unspecified (principal); I46.2 Cardiac arrest due to underlying cardiac condition; J96.90 Respiratory failure, unspecified, unspecified whether with hypoxia or hypercapnia; J69.0 Pneumonitis due to inhalation of food and vomit; E10.10 Type 1 diabetes mellitus with ketoacidosis without coma; N18.4 Chronic kidney disease, stage 4 (severe); N17.9 Acute kidney failure, unspecified; J81.1 Chronic pulmonary edema; E87.1 Hypo-osmolality and hyponatremia; G40.89 Other seizures; K56.7 Ileus, unspecified; E10.22 Type 1 diabetes mellitus with diabetic chronic kidney disease; I12.9 Hypertensive chronic kidney disease with stage 1 through stage 4 chronic kidney disease, or unspecified chronic kidney disease; Z96.41 Presence of insulin pump (external) (internal); E03.9 Hypothyroidism, unspecified; E29.1 Testicular hypofunction; I25.10 Atherosclerotic heart disease of native coronary artery without angina pectoris; D64.9 Anemia, unspecified; R55 Syncope and collapse; I95.9 Hypotension, unspecified; R41.82 Altered mental status, unspecified; D69.6 Thrombocytopenia, unspecified; D63.1 Anemia in chronic kidney disease; E83.42 Hypomagnesemia; K59.00 Constipation, unspecified; R48.2 Apraxia; D72.829 Elevated white blood cell count, unspecified; E10.649 Type 1 diabetes mellitus with hypoglycemia without coma

== ENCOUNTER → 2019-01-10 08:18 | Outpatient (CLI) | payer OTHER ==
[2018-07-15 12:09] VITALS: BMI 37.7
[~2019-01-10 08:18] MED LIST changes: +BENICAR20 MG PO; +CALAN120 MG PO; +DEMADEX20 MG PO; +KLONOPIN1 MG PO; +PAROXETINE HCL10 MG PO; +VELTASSA8.4 GM PO
--- NOTE | 2019-01-16 11:54 | ST ---
PATIENT:MARY ANNE MERIDA MEDICAL RECORD: [id number] SEX: M LOCATION:[facility] ORDER #: ADMISSION DATE: 01/10/19 AGE OF PATIENT: 38 REFERRING PHYSICIAN: INTERPRETING PHYSICIAN: DALE SPICER MD DATE OF SERVICE: 01/10/2019 PROCEDURE: Nuclear stress test. INDICATION: Angina, coronary artery disease, hypertension, hyperlipidemia, diabetes. He was exercised on standard Lexiscan protocol with 32 mCi of sestamibi injected at peak stress, 11 mCi were used previously for rest images. FINDINGS: Gated SPECT reveals preserved ejection fraction at 54% with good wall motion and thickening and brightening throughout all segments. SPECT imaging Cardiolite was used as myocardial fusion agent. There is homogeneous uptake throughout all segments at rest and stress with no evidence of inducible ischemia or previous infarction. OVERALL IMPRESSION: 1. This is a normal nuclear stress test with no evidence of inducible ischemia or previous infarction. 2. Gated SPECT reveals a preserved ejection fraction at 54%. In this patient with ongoing symptomatology, the current scan does not suggest the presence of hemodynamically significant coronary artery disease. Evaluate noncardiac etiology of chest pain. TRANSINT:[id number] Voice Confirmation ID: [id number] DOCUMENT ID: [id number] DALE SPICER MD at 1154 CC: [id number] DICTATION DATE: 01/10/19 1247 RUBBER PRODUCTION MACHINE OPERATOR: 01/11/19 0054 DEP CLI 01/10/19 [facility] [address] [place] [address]
== END | disposition home or self-care (01) ==
LOC: D.HCCARDIO 08:18
PROVIDERS: ATTEND Internal Medicine Interventional Cardiology
DX: I25.10 Atherosclerotic heart disease of native coronary artery without angina pectoris (principal)

== ENCOUNTER 2019-01-21 21:46 | Emergency (ER) | payer OTHER ==
[~2019-01-21] VITALS: Ht 188 cm; Wt 109.1 kg
[2019-01-21 21:55] VITALS: Ht 188 cm; Wt 109.1 kg
[2019-01-22 00:06] LABS: HEMATOCRIT 30.3 % (42.0-54.0); HEMOGLOBIN 10.6 g/dL (13.5-17.5); LYMPHOCYTES 29.7 % (15-50); MCV 80.2 fL (80.0-100.0); MEAN PLATELET VOLUME 9.3 fL (7.4-10.4); NEUTROPHILS 62.2 % (40-80); PLATELET COUNT 208 10x3/uL (130-400); RBC 3.78 10x6/uL (4.20-6.10); RDW 14.6 % (11.5-14.5); WBC 8.6 10x3/uL (4.8-10.8)
[2019-01-22 00:15] LABS: ALBUMIN 2.6 g/dL (3.4-5.0); ANION GAP 13.6 mmol/L (8-16); BILIRUBIN - TOTAL 0.18 mg/dL (0.2-1.3); CARBON DIOXIDE 25.8 mmol/L (21.0-32.0); CREATININE - SERUM 3.7 mg/dL (0.6-1.3); POTASSIUM - SERUM 4.4 mmol/L (3.5-5.1)
[2019-01-22 01:21] VITALS: BP 155/79
== END 2019-01-22 01:22 | disposition home or self-care (01) ==
LOC: D.ER 21:46
PROVIDERS: Family Medicine
DX: I12.9 Hypertensive chronic kidney disease with stage 1 through stage 4 chronic kidney disease, or unspecified chronic kidney disease (principal); N18.9 Chronic kidney disease, unspecified; E11.9 Type 2 diabetes mellitus without complications; G47.33 Obstructive sleep apnea (adult) (pediatric)

== ENCOUNTER 2019-03-14 06:00 | Day surgery (SDC) | payer OTHER ==
[2019-03-13 16:32] LABS: ANION GAP 13.8 mmol/L (8-16); CALCIUM 8.6 mg/dL (8.5-10.1); CARBON DIOXIDE 24.7 mmol/L (21.0-32.0); CREATININE - SERUM 4.2 mg/dL (0.6-1.3); POTASSIUM - SERUM 4.5 mmol/L (3.5-5.1)
[2019-03-13 16:38] LABS: INR 1.14 (0.85-1.17)
[~2019-03-14] VITALS: Ht 188 cm; Wt 113.4 kg
[~2019-03-14 06:00] MED LIST changes: +BAYER CHEWABLE81 MG PO; +FERROUS SULFAT325 MG PO; +FOLIC ACID1 MG PO; +HYDRALAZINE HCL50 MG PO; +LIPITOR80 MG PO; +RENVELA800 MG PO; +VITAMIN B-625 MG PO
[2019-03-14 06:18] LABS: BASOPHILS 0.5 % (0-2); EOSINOPHILS 2.8 % (0-7); HEMATOCRIT 32.2 % (42.0-54.0); HEMOGLOBIN 10.9 g/dL (13.5-17.5); IMMATURE GRANULOCYTES 0.4 % (0-5); LYMPHOCYTES 23.7 % (15-50); MCH 27.4 pg (26.0-34.0); MCHC 33.9 g/dL (31.0-37.0); MCV 80.9 fL (80.0-100.0); MEAN PLATELET VOLUME 9.4 fL (7.4-10.4); MONOCYTES 7.6 % (2-11); PLATELET COUNT 217 10x3/uL (130-400); RBC 3.98 10x6/uL (4.20-6.10); RDW 13.9 % (11.5-14.5)
[2019-03-14 06:39] VITALS: Ht 188 cm; Wt 113.4 kg
[2019-03-14] MEDS ORDERED: HYDROCODON-ACE1 EAC7 PO (10:33)
--- NOTE | 2019-03-14 10:50 | NUR ---
REC'D FROM RR. SLING TO LUE DUE TO EFFECTS OF NERVE BLOCK. DRESSING CDI. FAMILY AT BEDSIDE. COFFEE AND ICE WATER BROUGHT TO PATIENT. DR CARRERO TALKING WITH PATIENT AND SPOUSE.
--- NOTE | 2019-03-14 11:15 | NUR ---
ANTONIO SANZ SERVED TO PATIENT. FAMILY AT BEDSIDE.
--- NOTE | 2019-03-14 11:30 | NUR ---
AMBULATED TO BATHROOM AND VOIDED WITHOUT DIFFICULTY. SPOUSE AT BEDSIDE,
--- NOTE | 2019-03-14 11:50 | NUR ---
TOLERATED FL TRAY.
--- NOTE | 2019-03-14 12:00 | NUR ---
WRITTEN AND VERBAL DC INST. GIVEN TO PT ALONG WITH RX. VERBALIZED UNDERSTANDING.
--- NOTE | 2019-03-14 12:05 | NUR ---
DC'D HOME WITH FAMILY VIA PRIVATE VEHICLE. TAKEN TO VEHICLE VIA WC. STABLE AT TIME OF DC.
--- NOTE | 2019-03-14 14:30 | OP ---
PATIENT NAME: MARY ANNE ROSALES MEDICAL RECORD: [id number] :78 LOCATION:D.OPS ADMISSION DATE: SURGEON: YANIRA CARRERO MD DATE OF OPERATION: 03/14/2019 REFERRED BY: Dolly Michelle MD and Mary Lee MD PREOPERATIVE DIAGNOSIS: Chronic kidney disease V. POSTOPERATIVE DIAGNOSIS: Chronic kidney disease V. OPERATION PERFORMED: Creation of a left arm proximal radial artery to median antebrachial vein arteriovenous fistula. SURGEON: Yanira Carrero MD ANESTHESIA: Regional nerve block and TIVA per SECURITY GUARDS DISPATCHER. PREOPERATIVE NOTE: Mr. Rosales is a 38-year-old type 1 diabetic with generalized atherosclerotic disease in addition to severe renal impairment. It is anticipated that he will require dialysis and he was referred to me for long-term dialysis access. DESCRIPTION OF PROCEDURE: Under nerve block and TIVA, the patient's arm was prepped and draped in a sterile manner. I first examined him with Duplex ultrasound after applying nitroglycerin paste to the intact skin of his arm and forearm, and using a Yamileth drain as a proximal venous tourniquet. I was surprised to see such a paucity of usable veins. The veins that he has are all very very small and I did not see an adequate cephalic vein above or below the elbow, nor even an adequate basilic vein in the region of the elbow to permit primary fistula. He did have a good proximal radial artery and the median antebrachial vein, draining the lateral aspect of the forearm was patent and was the largest vein he had. I also confirmed that he does have normal size axillary vein and artery. I elected to go ahead with the PRA fistula and made a longitudinal incision just beneath the antecubital space. The artery and vein were dissected free and controlled with Silastic loops. They were approximated [id number] and occluded with the Silastic loops. A venotomy approximately 5-mm in length was made and the vein flushed proximally and distally with heparinized saline. Distal flow was poor due intact valves. The artery was then opened and it also was flushed proximally and distally, and the patient was at that time also given 2000 units of heparin systemically. The anastomosis was performed with continuous running 7-0 Prolene and when completed and the occluding loops were released, excellent flow developed in the fistula and there was a good bruit and continuous pulsatile flow on Doppler. The wound was irrigated with Ancef and gentamicin solution, it was then closed without the use of a drain approximating subcutaneous tissues with interrupted inverted 3-0 Vicryl. Skin was closed with running intracuticular 4-0 Monocryl and Dermabond glue. The incision was then further dressed with Maxorb Ag, Tegaderm, and Cavilon skin prep. He was awakened and taken back to the recovery room. Blood loss during the operation was nil. No drain was used. Sponges, instruments, and needles were accounted for and no surgical specimen was submitted for histopathology. OPERATIVE REPORT [id number] MARY ANNE ROSALES BRO I will plan to see Mr. Rosales back in my office in the next week or two. He can leave the original operative dressing alone and intact as long as he wishes or in 4-5 days remove it, and start washing it daily with soap and water at the incision that he has. He is given a prescription for 10 tablets of Kula 5/325, advised to take 1 every 4 hours p.r.n. for pain. TRANSINT:[id number] Voice Confirmation ID: [id number] DOCUMENT ID: [id number] YANIRA CARRERO MD at 1430 CC: MARY LEE MD and DOLLY MICHELLE [id number] DICTATION DATE: 03/14/19 1052 FIRE EXTINGUISHER INSPECTOR: 03/14/19 1215 [facility] 03/14/19 [facility] [address] [place] [address]
== END 2019-03-14 12:05 | disposition home or self-care (01) ==
LOC: D.OPS 06:00 → D.PAN 08:00 → D.OPS 12:05
PROVIDERS: Surgery; ATTEND Internal Medicine Nephrology
DX: E10.22 Type 1 diabetes mellitus with diabetic chronic kidney disease (principal); N18.5 Chronic kidney disease, stage 5; Z01.812 Encounter for preprocedural laboratory examination

== ENCOUNTER 2019-04-21 13:44 | Inpatient (IN) | payer OTHER ==
[~2019-04-21] VITALS: Ht 188 cm; Wt 110.9 kg
[~2019-04-21 13:44] MED LIST changes: +HYDROCODON-ACE1 EAC7 PO
--- NOTE | 2019-04-21 14:29 | NUR ---
ARRIVES TO ROOM VIA AMBULATORY FROM DOCTOR MITUL'S OFFICE. ALERT AND ORIENTED X4. STANDING WEIGHT ON SCALE 'LUIZ' 261lbs. RESERVE LT ARM SIGNS PLACED ABOVE BED AND ON DOOR. LT ARM FISTULA. RT CHEST HEMOSPLIT PLACED AT CLINIC. DRESSING INTACT. DENIES SOB OR PAIN. CONTINUE ADMISSION PROCESS. REFUSE SCDs. UP AD ROSELIA. CONTINUE PLAN OF CARE AND SAFETY PRECAUTIONS.
[2019-04-21 14:51] VITALS: BP 152/60; BMI 33.6
[2019-04-21 15:27] VITALS: BP 152/60
[2019-04-21 16:43] LABS: BASOPHILS 0.5 % (0-2); EOSINOPHILS 3.2 % (0-7); HEMATOCRIT 21.9 % (42.0-54.0); HEMOGLOBIN 7.6 g/dL (13.5-17.5); IMMATURE GRANULOCYTES 1.2 % (0-5); LYMPHOCYTES 33.9 % (15-50); MCH 27.5 pg (26.0-34.0); MCHC 34.7 g/dL (31.0-37.0); MCV 79.3 fL (80.0-100.0); MEAN PLATELET VOLUME 9.5 fL (7.4-10.4); NEUTROPHILS 48.2 % (40-80); PLATELET COUNT 143 10x3/uL (130-400); RBC 2.76 10x6/uL (4.20-6.10); RDW 13.4 % (11.5-14.5)
[2019-04-21 17:35] LABS: ANION GAP 12.7 mmol/L (8-16); CALCIUM 8.2 mg/dL (8.5-10.1); CARBON DIOXIDE 23.7 mmol/L (21.0-32.0); CREATININE - SERUM 6.2 mg/dL (0.6-1.3); POTASSIUM - SERUM 4.4 mmol/L (3.5-5.1)
[2019-04-21 20:00] VITALS: BP 182/66
--- NOTE | 2019-04-21 20:00 | NUR ---
ROUNDS COMPLETED, VSS WITH SBP OF 182. AAOX4, NO S/S OF DISTRESS. PT LAYING IN BED WITH EYES OPEN. SPOUSE BROUGHT CPAP MACHINE FROM HOME STATES HE USES IT AT HOME. BP MEDS GIVEN ALONGSIDE OTHER MEDICATIONS. WILL CPOC. CL IN REACH WILL CPOC.
[2019-04-22] VITALS: BP 145/59
[2019-04-22 04:00] VITALS: BP 157/70
[2019-04-22 06:56] LABS: ANION GAP 15.3 mmol/L (8-16); CALCIUM 7.9 mg/dL (8.5-10.1); CARBON DIOXIDE 22.6 mmol/L (21.0-32.0); CREATININE - SERUM 6.9 mg/dL (0.6-1.3); POTASSIUM - SERUM 3.9 mmol/L (3.5-5.1)
[2019-04-22 09:56] VITALS: BP 125/74
--- NOTE | 2019-04-22 12:03 | MORECARE ---
CASE MANAGEMENT DISCHARGE SUMMARY PATIENT: MARY ANNE MERIDA UNIT: [id number] ADM DATE: 04/21/19 AGE: 38 : 79 SEX: M ROOM/BED: D.1786 AUTHOR: FLORENTIN GLASGOW PHYSICIAN: REFERRING PHYSICIAN: MAGNO SANTO MD DATE OF SERVICE: 04/22/19 Discharge Plan Patient Name: MARY ANNE MERIDA Facility: [facility]:[place] : 1980 Planned Disposition: Home Anticipated Discharge Date: Discharge Date: Expected LOS: Initial Reviewer: [email or web address] Initial Review Date: 04/22/2019 Generated: 04/22/19 1:02 pm Comments DCP- Discharge Planning Updated by [email or web address]: Silvano Oviedo on 04/22/19 11:[address] Patient Name: MARY ANNE MERIDA Admission Status: Urgent Accout number: [id number] Admission Date: 04-21-2019 : 1980 Admission Diagnosis: Attending: MAGNO SANTO Current LOS: 1 Anticipated DC Date: Planned Disposition: Home Primary Insurance: [facility] Discharge Planning Comments: CM RECEIVED ORDER FOR OUTPATIENT DIALYSIS ARRANGEMENT. RN [employer]SE NOTIFIED OANH OF [facility] OF NEED FOR OUTPATIENT DIALYSIS UNIT ARRANGEMENT. CM MET WITH PT AND SPOUSE IN ROOM TO DISCUSS DISCHARGE PLANNING AND NEEDS. MARY ANNE MERIDA provided verbal consent to discuss current and ongoing needs with/in the presence of: SPOUSE, JESSA. PT REPORTS LIVING AT HOME INDEPENDENTLY WITH SPOUSE. PT HAS CPAP WITH NO MEDICAL EQUIPMENTPROVIDER PREFERENCE. PT HAS NO OUTSIDE SERVICES ASSISTING IN THE HOME. CM DISCUSSED AVAILABILITY OF HOME HEALTH, REHAB SERVICES AND MEDICAL EQUIPMENT. PT DENIES DISCHARGE NEEDS,OTHER THAN THE DIALYSIS DISCUSSED WITH THE DOCTOR. PT REPORTS HIS WILL PICK HIM UP FOR DISCHARGE HOME. PT PLANS TO DISCHARGE HOME WITH SPOUSE. OANH WAYNE OF [facility] IS WORKING ON OUTPATIENT DIALYSIS UNIT ARRANGEMENT. CM TO FOLLOW AND ASSIST IF NEEDED. City Marshal: Silvano Oviedo DCPIA - Discharge Planning Initial Assessment Updated by [email or web address]: Silvano Oviedo on 04/22/19 11:58 am * Is the patient Alert and Oriented? Yes * How many steps to enter\exit or inside your home? NONE * PCP DR. DIAL * Pharmacy [facility] ([facility]) * Preadmission Environment Home with Family * ADLs Independent * Equipment CPAP * Other Equipment NO MEDICAL EQUIPMENT PROVIDER PREFERENCE * List name and contact numbers for known caregivers / representatives who currently or will assist patient after discharge: JESSA MERIDA, SPOUSE, * Verbal permission to speak to the caregivers and representatives has been obtained from the patient. Yes * Community resources currently utilized None * Please name any agencies selected above. NONE * Additional services required to return to the preadmission environment? No * Can the patient safely return to the preadmission environment? Yes * Has this patient been hospitalized within the prior 30 days at any hospital? Yes Patient Name: MARY ANNE MERIDA Page 18034 at 1203 All edits/amendments must be made on the electronic document DICTATION DATE: 04/22/191201 RESEARCHER: RAGHU 04/22/191201 RPT#: [id number] DC DATE: STATUS: ADM IN [facility] [address] [place] [address] END OF REPORT
[2019-04-22 12:20] VITALS: Ht 188 cm; Wt 110.9 kg
--- NOTE | 2019-04-22 13:57 | NUR ---
ARRIVE BACK TO ROOM FROM MAINFRAME PROGRAMMER ANALYST. ALERT AND ORIENTED X4. FAMILY AT BEDSIDE. BP-82/53, HR-63 SINUS RHYTHM, O2 98% WITH 2L NC. CONTINUE TO MONITOR. CONTINUE PLAN OF CARE AND SAFETY PRECAUTIONS.
[2019-04-22 15:32] VITALS: BP 132/69
--- NOTE | 2019-04-22 18:00 | NUR ---
SITTING UP IN BED. ALERT AND ORIENTED X4. FAMILY AT BEDSIDE. IRON INFUSION COMPLETE. FLUSH AND SL RT WRIST IV. DENIES ANY NEEDS. CONTINUE PLAN OF CARE AND SAFETY PRECAUTIONS.
--- NOTE | 2019-04-22 19:15 | NUR ---
PT AAO. UP AD ROSELIA. PT WALKING TO RESTROOM, PT GAIT STEADY. NAME AND DATE PLACED ON BOARD. PT BEDLOW AND CALL LIGHT IN REACH. NO S/S OF DISTRESS. PT WILL CALL FOR ASSIST, WILL CPOC
[2019-04-22 20:00] VITALS: BP 208/82
--- NOTE | 2019-04-22 20:50 | NUR ---
NIGHT MEDICATIONS GIVEN, VERBALIZED ALL MEDICATIONS. PT HAS NO S/S OF DISTRESS. WILL CPOC
[2019-04-23] VITALS (7 sets, daily range): BP systolic 137–180; BP diastolic 59–70
--- NOTE | 2019-04-23 04:07 | NUR ---
PT ASLEEP, RESP EVEN AND UNLABORED NO S/S OF DISTRESS. BEDLOW AND CALL LIGHT IN REACH. WILL CPOC
--- NOTE | 2019-04-23 05:44 | NUR ---
MORNING MEDICATIONS GIVEN. PT WEARING CPAP FROM HOME. DENIES ANY NEEDS. WILL CALL FOR ASSIST. WILL CPOC
[2019-04-23 07:14] LABS: ANION GAP 16.4 mmol/L (8-16); CARBON DIOXIDE 24.6 mmol/L (21.0-32.0); CREATININE - SERUM 5.9 mg/dL (0.6-1.3)
--- NOTE | 2019-04-23 08:09 | NUR ---
AM MEDS GIVEN AT THIS TIME. PT IN BED, EATING BREAKFAST, A/O X4, RESP EVEN AND NONLABORED ON RA. LT AV FISTULA WITH THRILL AND BRUIE NOTED. RT FA IV SL. RT CHEST HEMOSPLIT NOTED WITH DRESSING CDI, BIOPATCH IN PLACE. PT DENIES ANY NEEDS AT THIS TIME. CALL LIGTH IN REACH, NAD NOTED, WILL CONTINUE PLAN OF CARE.
[2019-04-23 10:15] LABS: HEPATITIS C ANTIBODY 0.1 S/CO RAT (0.0-0.9)
--- NOTE | 2019-04-23 15:55 | NUR ---
PT TRANSFERED TO DIALYSIS AT THIS TIME.
--- NOTE | 2019-04-23 20:46 | NUR ---
HS MEDS GIVEN WITH FRESH ICE WATER. PT CURRENTLY DENIES NEEDS. BED LOW, CL IN REACH.
[2019-04-24] VITALS: BP 142/65
[2019-04-24 04:20] LABS: BASOPHILS 0.6 % (0-2); EOSINOPHILS 2.3 % (0-7); HEMATOCRIT 22.4 % (42.0-54.0); IMMATURE GRANULOCYTES 5.2 % (0-5); LYMPHOCYTES 22.1 % (15-50); MCH 27.7 pg (26.0-34.0); MCHC 35.7 g/dL (31.0-37.0); MCV 77.5 fL (80.0-100.0); MEAN PLATELET VOLUME 9.3 fL (7.4-10.4); MONOCYTES 9.4 % (2-11); NEUTROPHILS 60.4 % (40-80); RBC 2.89 10x6/uL (4.20-6.10); RDW 13.1 % (11.5-14.5); WBC 6.5 10x3/uL (4.8-10.8)
[2019-04-24 04:41] LABS: PLATELET COUNT 185 10x3/uL (130-400)
[2019-04-24 04:46] LABS: ANION GAP 11.6 mmol/L (8-16); CALCIUM 7.8 mg/dL (8.5-10.1); CREATININE - SERUM 5.9 mg/dL (0.6-1.3); POTASSIUM - SERUM 3.6 mmol/L (3.5-5.1)
[2019-04-24 07:04] VITALS: BP 150/74
--- NOTE | 2019-04-24 07:30 | NUR ---
ASSESSMENT DONE DENIES NEEDS.
[2019-04-24 08:13] VITALS: BP 184/76
--- NOTE | 2019-04-24 12:19 | NUR ---
I have reviewed this patient and I concur with the Shift Assessment completed by the Licensed Practical Nurse today this shift.
[2019-04-24 12:21] VITALS: BP 160/71
--- NOTE | 2019-04-24 15:56 | MORECARE ---
CASE MANAGEMENT DISCHARGE SUMMARY PATIENT: MARY ANNE MERIDA UNIT: [id number] ADM DATE: 04/21/19 AGE: 38 : 79 SEX: M ROOM/BED: D.6752 AUTHOR: FLORENTIN GLASGOW PHYSICIAN: REFERRING PHYSICIAN: MAGNO SANTO MD DATE OF SERVICE: 04/24/19 Discharge Plan Patient Name: MARY ANNE MERIDA Facility: [facility]:[place] : 1980 Planned Disposition: Home Anticipated Discharge Date: Discharge Date: Expected LOS: Initial Reviewer: [email or web address] Initial Review Date: 04/22/2019 Generated: 04/24/19 4:56 pm Comments DCP- Discharge Planning Updated by [id number]: Sarah Beth Junior on 04/24/19 2:[address] PATIENT HAS BEEN ACCEPTED TO [facility] FOR A [id number] SCHEDULE TO ARRIVE AT 1015 FOR A 1030 CHAIR TIME. PATIENT WILL NOT BE ABLE TO START UNTIL SUNDAY, April WITH ARRIVAL TIME FOR THIS DAY BEING 0945. I HAVE HAND FILLED OUT A WELCOME LETTER AND WILL DELIVER IT TO THE PATIENT. I HAVE LEFT A VOICEMAIL FOR ITZEL ROBERTSONN FOR DR BAUMAN SECONDARY TO DR BAUMAN LEAVING BEFORE I GOT THE ANSWER. I HAVE EXPLAINED I WOULD PUT IN A NOTE WITH THE CHIAR TIMES, ETC. DCP- Discharge Planning Updated by [id number]: Silvano Oviedo on 04/22/19 11:[address] Patient Name: MARY ANNE MERIDA Admission Status: Urgent Accout number: [id number] Admission Date: 04-21-2019 : 1980 Admission Diagnosis: Attending: MAGNO SANTO Current LOS: 1 Anticipated DC Date: Planned Disposition: Home Primary Insurance: [facility] Discharge Planning Comments: CM RECEIVED ORDER FOR OUTPATIENT DIALYSIS ARRANGEMENT. MICHELLE JUNIOR NOTIFIED OANH [facility] OF NEED FOR OUTPATIENT DIALYSIS UNIT ARRANGEMENT. CM MET WITH PT AND SPOUSE IN ROOM TO DISCUSS DISCHARGE PLANNING AND NEEDS. MARY ANNE MERIDA provided verbal consent to discuss current and ongoing needs with/in the presence of: SPOUSE, JESSA. PT REPORTS LIVING AT HOME INDEPENDENTLY WITH SPOUSE. PT HAS CPAP WITH NO MEDICAL EQUIPMENTPROVIDER PREFERENCE. PT HAS NO OUTSIDE SERVICES ASSISTING IN THE HOME. CM DISCUSSED AVAILABILITY OF HOME HEALTH, REHAB SERVICES AND MEDICAL EQUIPMENT. PT DENIES DISCHARGE NEEDS,OTHER THAN THE DIALYSIS DISCUSSED WITH THE DOCTOR. PT REPORTS HIS WILL PICK HIM UP FOR DISCHARGE HOME. PT PLANS TO DISCHARGE HOME WITH SPOUSE. OANH WAYNE OF [facility] IS WORKING ON OUTPATIENT DIALYSIS UNIT ARRANGEMENT. CM TO FOLLOW AND ASSIST IF NEEDED. Agricultural Systems Specialist: Silvano Oviedo DCPIA - Discharge Planning Initial Assessment Updated by [id number]: Silvano Oviedo on 04/22/19 11:58 am * Is the patient Alert and Oriented? Yes * How many steps to enter\exit or inside your home? NONE * PCP DR. DIAL * Pharmacy [facility] ([facility]) * Preadmission Environment Home with Family * ADLs Independent * Equipment CPAP * Other Equipment NO MEDICAL EQUIPMENT PROVIDER PREFERENCE * List name and contact numbers for known caregivers / representatives who currently or will assist patient after discharge: JESSA MERIDA, SPOUSE, * Verbal permission to speak to the caregivers and representatives has been obtained from the patient. Yes * Community resources currently utilized None * Please name any agencies selected above. NONE * Additional services required to return to the preadmission environment? No * Can the patient safely return to the preadmission environment? Yes * Has this patient been hospitalized within the prior 30 days at any hospital? Yes Last DP export: 04/22/19 11:03 a Patient Name: MARY ANNE MERIDA Page [phone] at 1556 All edits/amendments must be made on the electronic document DICTATION DATE: 04/24/191554 VP SOFTWARE: RAGHU 04/24/191554 RPT#: [id number] DC DATE: STATUS: ADM IN [facility] [address] [place] [address] END OF REPORT
[2019-04-24 16:47] VITALS: BP 140/74
--- NOTE | 2019-04-24 16:50 | NUR ---
TO HD PER WC
[2019-04-24 20:00] VITALS: BP 169/76
[2019-04-25] VITALS: BP 136/69
[2019-04-25 05:00] VITALS: BP 144/68
--- NOTE | 2019-04-25 06:14 | NUR ---
I have reviewed this patient and I concur with the Shift Assessment completed by the Licensed Practical Nurse today this shift.
[2019-04-25 08:14] LABS: ANION GAP 11.7 mmol/L (8-16); CALCIUM 7.8 mg/dL (8.5-10.1); CARBON DIOXIDE 28.5 mmol/L (21.0-32.0); CREATININE - SERUM 6.1 mg/dL (0.6-1.3); POTASSIUM - SERUM 3.2 mmol/L (3.5-5.1)
--- NOTE | 2019-04-25 08:57 | NUR ---
PATIENT IS ALERT AND ORIENTED. RECIEVED REPORT. PRISONER CLASSIFICATION INTERVIEWER INFORMED ME THAT THIS PATIENT CHECKS HIS OWN BLOOD SUGAR. WILL CONTINUE TO MONITOR.
[2019-04-25 09:38] LABS: BASOPHILS 1.3 % (0-2); EOSINOPHILS 2.8 % (0-7); HEMATOCRIT 23.3 % (42.0-54.0); HEMOGLOBIN 8.2 g/dL (13.5-17.5); IMMATURE GRANULOCYTES 4.6 % (0-5); LYMPHOCYTES 27.8 % (15-50); MCH 27.8 pg (26.0-34.0); MCHC 35.2 g/dL (31.0-37.0); MEAN PLATELET VOLUME 9.5 fL (7.4-10.4); MONOCYTES 10.9 % (2-11); NEUTROPHILS 52.6 % (40-80); PLATELET COUNT 208 10x3/uL (130-400); RBC 2.95 10x6/uL (4.20-6.10); RDW 13.3 % (11.5-14.5); WBC 6.2 10x3/uL (4.8-10.8)
[2019-04-25 09:55] VITALS: BP 150/73
[2019-04-25 12:49] VITALS: BP 122/62
[2019-04-25 17:57] VITALS: BP 168/75
[2019-04-25 20:00] VITALS: BP 193/81
--- NOTE | 2019-04-25 21:39 | NUR ---
INITIAL ROUNDS COMPLETED AT 1910 HRS. PT DENIED ANY DISCOMFORT. ASSESSMENT COMPLETED AT 1935 HRS. BP ELEVATED 193/81. ALERT AND ORIENTED TO PERSON, PLACE AND TIME. MAST. IV TO R WRIST SL. LFA AVF WITH GOOD BRUIT AND THRILL. R CHEST HEMOSPLIT CLEAN, DRY AND INTACT. PM MEDS INCLUDING HTN MEDS GIVEN AROUND 2000 HRS. PT AMBULATED 500 FEET WITH . GAIT EVEN AND STEADY. PT CURRENTLY WATCHING TV, NO DISTRESS NOTED. SR UP X2, CALL LIGHT WITHIN REACH.
--- NOTE | 2019-04-25 22:01 | NUR ---
PT WATCHING TV; DENIES ANY DISCOMFORT. SR UP X2, CALL LIGHT WITHIN REACH.
[2019-04-26] VITALS: BP 167/67
--- NOTE | 2019-04-26 00:42 | NUR ---
PT RESTING WITH EYES CLOSED. RESP EVEN AND REGULAR. SR UP X2, CALL LIGHT WITHIN REACH.
--- NOTE | 2019-04-26 02:50 | NUR ---
PT RESTING WITH EYES CLOSED. RESP EVEN AND REGULAR. SR UP X2,CALL LIGHT WITHIN REACH.
[2019-04-26 04:00] VITALS: BP 157/72
--- NOTE | 2019-04-26 04:27 | NUR ---
PT AWAKE; DENIES ANY DISCOMFORT. CALL LIGHT WTIHIN REACH.
--- NOTE | 2019-04-26 06:15 | NUR ---
VSS THORUGHOUT NIGHT. PT DENIED ANY DISCOMFORT. PT RESTED WELL WITH HIS OWN CPAP MACHINE. NEEDS MET; WILL CONTINUE TO MONITOR.
--- NOTE | 2019-04-26 07:27 | NUR ---
RECIEVED REPORT. PATIENT IS RESTING WITH EYES CLOSED AT THIS TIME. PATIENT IS GOING TO DIALYSIS THIS MORNING AND THEN HE SHOULD BE DISCHARGED. WAITING FOR ORDERS, HOWEVER THAT IS WHAT THE PATIENT REPORTS THE DOCTOR TOLD HIM YESTERDAY.
[2019-04-26 10:08] VITALS: BP 159/70
--- NOTE | 2019-04-26 14:20 | NUR ---
IV REMOVED FROM LEFT WRIST CATHETER INTACT. ALL PATIENT BELONGINGS WERE REMOVED FROM THE ROOM. PATIENT WENT DOWNSTAIRS BY WHEELCHAIR AND DISCHARGE TEACHING HAD BEEN DONE. ALL DISCHARGE PAPERS SIGNED.
--- NOTE | 2019-04-28 08:34 | MORECARE ---
CASE MANAGEMENT DISCHARGE SUMMARY PATIENT: MARY ANNE MERIDA UNIT: [id number] ADM DATE: 04/21/19 AGE: 38 : 78 SEX: M ROOM/BED: D.3696 AUTHOR: FLORENTIN GLASGOW PHYSICIAN: REFERRING PHYSICIAN: MAGNO SANTO MD DATE OF SERVICE: 04/28/19 Discharge Plan Patient Name: MARY ANNE MERIDA Facility: [facility]:[place] : 1980 Planned Disposition: Home Anticipated Discharge Date: 04/26/19 Discharge Date: 04/26/2019 Expected LOS: 5 Initial Reviewer: [email or web address] Initial Review Date: 04/22/2019 Generated: 04/28/19 9:34 am Comments DCP- Discharge Planning Updated by [id number]: Sarah Beth Junior on 04/24/19 2:[address] PATIENT HAS BEEN ACCEPTED TO [facility] FOR A [id number] SCHEDULE TO ARRIVE AT 1015 FOR A 1030 CHAIR TIME. PATIENT WILL NOT BE ABLE TO START UNTIL SUNDAY, April WITH ARRIVAL TIME FOR THIS DAY BEING 0945. I HAVE HAND FILLED OUT A WELCOME LETTER AND WILL DELIVER IT TO THE PATIENT. I HAVE LEFT A VOICEMAIL FOR NADEEM DOYLE APN FOR DR BAUMAN SECONDARY TO DR BAUMAN LEAVING BEFORE I GOT THE ANSWER. I HAVE EXPLAINED I WOULD PUT IN A NOTE WITH THE CHIAR TIMES, ETC. DCP- Discharge Planning Updated by [id number]: Silvano Oviedo on 04/22/19 11:[address] Patient Name: MARY ANNE MERIDA Admission Status: Urgent Accout number: [id number] Admission Date: 04-21-2019 : 1980 Admission Diagnosis: Attending: MAGNO SANTO Current LOS: 1 Anticipated DC Date: Planned Disposition: Home Primary Insurance: [facility] [employer] [facility] Discharge Planning Comments: CM RECEIVED ORDER FOR OUTPATIENT DIALYSIS ARRANGEMENT. MICHELLE JUNIOR NOTIFIED OANH OF [facility] OF NEED FOR OUTPATIENT DIALYSIS UNIT ARRANGEMENT. CM MET WITH PT AND SPOUSE IN ROOM TO DISCUSS DISCHARGE PLANNING AND NEEDS. MARY ANNE MERIDA provided verbal consent to discuss current and ongoing needs with/in the presence of: SPOUSE, JESSA. PT REPORTS LIVING AT HOME INDEPENDENTLY WITH SPOUSE. PT HAS CPAP WITH NO MEDICAL EQUIPMENTPROVIDER PREFERENCE. PT HAS NO OUTSIDE SERVICES ASSISTING IN THE HOME. CM DISCUSSED AVAILABILITY OF HOME HEALTH, REHAB SERVICES AND MEDICAL EQUIPMENT. PT DENIES DISCHARGE NEEDS,OTHER THAN THE DIALYSIS DISCUSSED WITH THE DOCTOR. PT REPORTS HIS WILL PICK HIM UP FOR DISCHARGE HOME. PT PLANS TO DISCHARGE HOME WITH SPOUSE. OANH WAYNE OF [facility] IS WORKING ON OUTPATIENT DIALYSIS UNIT ARRANGEMENT. CM TO FOLLOW AND ASSIST IF NEEDED. Surveyor Instrument Assistant: Silvano Oviedo DCPIA - Discharge Planning Initial Assessment Updated by [email or web address]: Silvano Oviedo on 04/22/19 11:58 am * Is the patient Alert and Oriented? Yes * How many steps to enter\exit or inside your home? NONE * PCP DR. DIAL * Pharmacy [facility] ([facility]) * Preadmission Environment Home with Family * ADLs Independent * Equipment CPAP * Other Equipment NO MEDICAL EQUIPMENT PROVIDER PREFERENCE * List name and contact numbers for known caregivers / representatives who currently or will assist patient after discharge: JESSA MERIDA, SPOUSE, * Verbal permission to speak to the caregivers and representatives has been obtained from the patient. Yes * Community resources currently utilized None * Please name any agencies selected above. NONE * Additional services required to return to the preadmission environment? No * Can the patient safely return to the preadmission environment? Yes * Has this patient been hospitalized within the prior 30 days at any hospital? Yes Last DP export: 04/24/19 2:56 p Patient Name: MARY ANNE MERIDA Page 47589 at 0834 All edits/amendments must be made on the electronic document DICTATION DATE: 04/28/19832 MANAGER OF DEVELOPMENT: RAGHU 04/28/19832 RPT#: [id number] DC DATE:04/26/19 STATUS: DIS IN [facility] [address] [place] [address] END OF REPORT
== END 2019-04-26 14:31 | disposition home or self-care (01) | DRG 699 ==
LOC: D.M2 13:44
PROVIDERS: Internal Medicine; ADMIT Internal Medicine Nephrology; ATTEND Internal Medicine Nephrology
PROC: 5A1D70Z Performance of Urinary Filtration, Intermittent, Less than 6 Hours Per Day (ICD-10-PCS; principal; 2019-04-22)
DX: E10.22 Type 1 diabetes mellitus with diabetic chronic kidney disease (principal); I12.0 Hypertensive chronic kidney disease with stage 5 chronic kidney disease or end stage renal disease; N18.6 End stage renal disease; Z99.2 Dependence on renal dialysis; I25.10 Atherosclerotic heart disease of native coronary artery without angina pectoris; D63.1 Anemia in chronic kidney disease; D50.9 Iron deficiency anemia, unspecified

== ENCOUNTER 2019-07-03 19:26 | Observation (INO) | payer OTHER ==
[~2019-07-03] VITALS: Ht 188 cm; Wt 111.4 kg
[2019-07-03 20:34] LABS: BASOPHILS 0.5 % (0-2); EOSINOPHILS 4.6 % (0-7); HEMATOCRIT 39.7 % (42.0-54.0); HEMOGLOBIN 13.6 g/dL (13.5-17.5); IMMATURE GRANULOCYTES 0.4 % (0-5); LYMPHOCYTES 23.2 % (15-50); MCH 28.2 pg (26.0-34.0); MCHC 34.3 g/dL (31.0-37.0); MCV 82.4 fL (80.0-100.0); MEAN PLATELET VOLUME 9.8 fL (7.4-10.4); MONOCYTES 9.7 % (2-11); NEUTROPHILS 61.6 % (40-80); RBC 4.82 10x6/uL (4.20-6.10); RDW 13.6 % (11.5-14.5); WBC 7.5 10x3/uL (4.8-10.8)
--- NOTE | 2019-07-03 20:34 | NUR ---
REPLACED GAUZE AROUND PT'S HEMOSPLIT SITE WITH STERILE 4X4 GAUZE AND SANDBAG PLACED ON TOP OF BANDAGE PER DR. ROSE ORDERS. PT TOLERATED WELL.
[2019-07-03 20:35] LABS: PLATELET COUNT 138 10x3/uL (130-400)
[2019-07-03 20:43] LABS: INR 0.94 (0.85-1.17); PROTIME 12.1 SECONDS (11.6-15.0)
[2019-07-03 20:49] LABS: ALBUMIN 3.4 g/dL (3.4-5.0); ANION GAP 13.7 mmol/L (8-16); BILIRUBIN - TOTAL 0.24 mg/dL (0.2-1.3); CALCIUM 8.5 mg/dL (8.5-10.1); CARBON DIOXIDE 28.3 mmol/L (21.0-32.0); CREATININE - SERUM 4.2 mg/dL (0.6-1.3); PROTEIN - SERUM 6.9 g/dL (6.4-8.2)
[2019-07-03 22:22] VITALS: BP 182/85; BMI 31.5
[2019-07-04 04:00] VITALS: BP 177/82
[2019-07-04 05:28] LABS: BASOPHILS 0.5 % (0-2); EOSINOPHILS 5.2 % (0-7); HEMATOCRIT 38.9 % (42.0-54.0); HEMOGLOBIN 13.1 g/dL (13.5-17.5); IMMATURE GRANULOCYTES 0.2 % (0-5); LYMPHOCYTES 23.7 % (15-50); MCH 27.7 pg (26.0-34.0); MCHC 33.7 g/dL (31.0-37.0); MCV 82.2 fL (80.0-100.0); MEAN PLATELET VOLUME 10.4 fL (7.4-10.4); MONOCYTES 9.1 % (2-11); NEUTROPHILS 61.3 % (40-80); PLATELET COUNT 153 10x3/uL (130-400); RBC 4.73 10x6/uL (4.20-6.10); RDW 13.7 % (11.5-14.5); WBC 8.3 10x3/uL (4.8-10.8)
[2019-07-04 05:51] LABS: ANION GAP 12.7 mmol/L (8-16); CALCIUM 8.7 mg/dL (8.5-10.1); CARBON DIOXIDE 26.7 mmol/L (21.0-32.0); CREATININE - SERUM 4.6 mg/dL (0.6-1.3); POTASSIUM - SERUM 4.4 mmol/L (3.5-5.1)
[2019-07-04 07:46] VITALS: Ht 188 cm; Wt 111.4 kg
== END 2019-07-04 10:15 | disposition home or self-care (01) ==
LOC: D.ER 19:26 → OBSVTIME 20:25 → D.M2 20:25
PROVIDERS: Family Medicine; ADMIT Internal Medicine Nephrology; ATTEND Internal Medicine Nephrology
DX: T82.838A Hemorrhage due to vascular prosthetic devices, implants and grafts, initial encounter (principal); I12.0 Hypertensive chronic kidney disease with stage 5 chronic kidney disease or end stage renal disease; E11.22 Type 2 diabetes mellitus with diabetic chronic kidney disease; N18.6 End stage renal disease; Z99.2 Dependence on renal dialysis; I25.10 Atherosclerotic heart disease of native coronary artery without angina pectoris; D63.1 Anemia in chronic kidney disease

== ENCOUNTER 2019-09-05 07:58 | Day surgery (SDC) | payer OTHER ==
[~2019-09-05] VITALS: Ht 188 cm; Wt 113.4 kg
[2019-09-05 08:25] LABS: BASOPHILS 0.5 % (0-2); EOSINOPHILS 3.3 % (0-7); HEMATOCRIT 38.5 % (42.0-54.0); HEMOGLOBIN 12.6 g/dL (13.5-17.5); IMMATURE GRANULOCYTES 0.5 % (0-5); LYMPHOCYTES 24.4 % (15-50); MCH 28.6 pg (26.0-34.0); MCHC 32.7 g/dL (31.0-37.0); MCV 87.5 fL (80.0-100.0); MEAN PLATELET VOLUME 9.6 fL (7.4-10.4); MONOCYTES 8.6 % (2-11); NEUTROPHILS 62.7 % (40-80); PLATELET COUNT 170 10x3/uL (130-400); RDW 16.9 % (11.5-14.5); WBC 7.9 10x3/uL (4.8-10.8)
[2019-09-05 08:36] LABS: ANION GAP 9.4 mmol/L (8-16); CALCIUM 8.6 mg/dL (8.5-10.1); CARBON DIOXIDE 30.1 mmol/L (21.0-32.0); CREATININE - SERUM 4.7 mg/dL (0.6-1.3); POTASSIUM - SERUM 4.5 mmol/L (3.5-5.1)
[2019-09-05 08:39] LABS: INR 0.9 (0.85-1.17); PROTIME 11.7 SECONDS (11.6-15.0)
[2019-09-05 09:35] VITALS: Ht 188 cm; Wt 113.4 kg
--- NOTE | 2019-09-05 12:59 | NUR ---
OPA REMOVED. PT AWAKE WITH RR NONLABORED AND EVEN ON RA.
[2019-09-05] MEDS ORDERED: HYDROCODON-ACE1 EAC7 PO (13:00)
--- NOTE | 2019-09-05 14:35 | NUR ---
PATIENT AMBULATING AROUND ROOM WITHOUT UNSTEADINESS OR DIZZINESS, RIGHT HAND PIV DC'D WITH TIP INTACT. DISCHARGE INSTRUCTRUCTIONS REVIEWED WITH PATIENT AND SPOUSE
--- NOTE | 2019-09-09 15:18 | OP ---
PATIENT NAME: MARY ANNE ROSALES MEDICAL RECORD: [id number] :78 LOCATION:[facility] AD[facility] DATE: SURGEON: YANIRA CARRERO MD DATE OF OPERATION: 09/05/2019 PREOPERATIVE DIAGNOSIS: Complication of surgically created dialysis AV fistula, left arm with failure to mature. POSTOPERATIVE DIAGNOSIS: Complication of surgically created dialysis AV fistula, left arm with failure to mature. OPERATION PERFORMED: Open revision with ligation of outflow to the basilic vein and to the median antebrachial vein and then dissection and mobilization of the cephalic vein from antecubital space to the deltopectoral groove with subsequent super fistulization by wound closure, subcutaneous tissues deep to the vein and closure of the skin directly over it. SURGEON: Yanira Carrero MD ANESTHESIA: General by [employer]. REFERRING PHYSICIAN: Mary Lee MD PREOPERATIVE NOTE: Mr. Rosales is a 39-year-old white male, juvenile onset diabetic with end-stage renal disease, who was begun dialysis with a catheter. He has a left distal brachial or proximal radial artery cephalic vein AV fistula, which is difficult to palpate and has not matured sufficiently to provide dialysis access. By Doppler examination, there is a considerable blood flow into the proximal basilic vein and there is blood flow distally in the forearm via the median antebrachial vein also, this being a bidirectional output fistula when it was created. I am going to revise it today. DESCRIPTION OF PROCEDURE: Under anesthesia in supine position, the patient was prepped and draped in a sterile manner. I reopened the incision on the forearm over the arterial anastomosis and exposed the median antebrachial vein and ligated it with 2-0 silk distal to the arterial anastomosis. I then multiply ligated and divided the median cubital vein branch to the basilic and freed the primary runoff to the cephalic vein from surrounding tissues and any tissue adhesions to allow for expansion. I then made a long incision on the arm from deltopectoral groove down to just above the antecubital space and exposed and fully dissected and mobilized the cephalic vein. Tributaries were divided between clips. Electrocautery was used for additional hemostasis. The wound was infiltrated with 0.25% Marcaine without epinephrine and then the subcutaneous tissues were closed deep to the vein and the skin was closed over the vein with running intracuticular Monocryl. Excellent pulsatile Doppler flow was maintained in the fistula and pulsation and thrill and Doppler flow signals were dramatically improved in the fistula after ligation of the other 2 outflow veins. The incision distal to the antecubital space likewise was infiltrated with Marcaine and closed with Vicryl and Monocryl. The incisions were sealed with Dermabond glue and dressed with Maxorb Ag, Tegaderm, and Cavilon skin prep, and the patient awakened and taken to the recovery room. PLAN: The patient's fistula hopefully will go ahead now and mature and reach a point where it can provide access. It would be at least a month I would think so before that will be the case, may be longer. The patient will be discharged OPERATIVE REPORT [id number] MARY ANNE ROSALES today and return to see me in my office in about a week to 10 days. He is to continue his same home medications and diet and dialysis schedule. TRANSINT:[id number] Voice Confirmation ID: [id number] DOCUMENT ID: [id number] YANIRA CARRERO MD at 1518 CC: MARY LEE MD [id number] DICTATION DATE: 09/05/19 163 DIAL POLISHER: 09/05/192157 [facility] 09/05/19 [facility] [address] [place] [address]
== END 2019-09-05 14:40 | disposition home or self-care (01) ==
LOC: D.OPS 07:58
PROVIDERS: Surgery; ATTEND Internal Medicine Nephrology
DX: T82.590A Other mechanical complication of surgically created arteriovenous fistula, initial encounter (principal); Y83.9 Surgical procedure, unspecified as the cause of abnormal reaction of the patient, or of later complication, without mention of misadventure at the time of the procedure

== ENCOUNTER → 2019-10-06 10:59 | Outpatient (CLI) | payer OTHER ==
[2019-09-05 09:35] VITALS: BMI 32.1
[2019-10-08 10:10] LABS: ANGIOTENSIN CONVERTING ENZYME 47 U/L (14-82)
[2019-10-09 19:07] LABS: FUNGAL - ASP FLAVUS Negative (Neg:<1:1); FUNGAL - ASP NIGER Negative (Neg:<1:1); FUNGAL - ASPER FUMIGATUS Negative (Neg:<1:1)
== END | disposition home or self-care (01) ==
LOC: D.LAB 09:45 → D.RT 11:00
PROVIDERS: ATTEND Internal Medicine Pulmonary Disease
DX: R91.8 Other nonspecific abnormal finding of lung field (principal)

== ENCOUNTER 2020-07-15 03:06 | Emergency (ER) | payer BC ==
[~2020-07-15] VITALS: Ht 188 cm; Wt 111.4 kg
[2020-07-15 03:09] VITALS: Ht 188 cm; Wt 111.4 kg
[2020-07-15] MEDS ORDERED: BAYER ASPIRIN325 MG (03:13)
[2020-07-15] MEDS ORDERED: SYNTHROID175 MCG PO (03:14)
[2020-07-15] MEDS ORDERED: BUPROPION HCL150 M1 PO (03:14)
[2020-07-15 03:45] LABS: BASOPHILS 0.2 % (0-2); EOSINOPHILS 2.5 % (0-7); HEMATOCRIT 36.3 % (42.0-54.0); HEMOGLOBIN 12.2 g/dL (13.5-17.5); IMMATURE GRANULOCYTES 0.4 % (0-5); LYMPHOCYTES 12.9 % (15-50); MCHC 33.6 g/dL (31.0-37.0); MCV 86.4 fL (80.0-100.0); MEAN PLATELET VOLUME 9.5 fL (7.4-10.4); PLATELET COUNT 194 10x3/uL (130-400); RDW 13.4 % (11.5-14.5); WBC 15.8 10x3/uL (4.8-10.8)
[2020-07-15 03:59] LABS: CALC OSMOLALITY 302 mosm/kg (275-300); CALCIUM 8.9 mg/dL (8.5-10.1); CHLORIDE - SERUM 99 mmol/L (98-107); CREATININE - SERUM 7.6 mg/dL (0.6-1.3); GLUCOSE 190 mg/dL (74-106); POTASSIUM - SERUM 3.7 mmol/L (3.5-5.1); SODIUM 140 mmol/L (136-145); UREA NITROGEN 67 mg/dL (7-18); eGFR NON AFRICAN AMERICAN 8 mL/min (90-120)
[2020-07-15 04:14] LABS: ALBUMIN 4.4 g/dL (3.4-5.0); ALKALINE PHOSPHATASE 97 U/L (30-120); ALT (SGPT) 46 U/L (10-68); BILIRUBIN - TOTAL 0.34 mg/dL (0.2-1.3); PRO BNP 672 pg/mL (0-125); PROTEIN - SERUM 7.6 g/dL (6.4-8.2)
[2020-07-15 04:15] LABS: C-REACTIVE PROTEIN 0.2 mg/dL (0.0-0.9); TROPONIN-I < 0.017 ng/mL (0.000-0.060)
[2020-07-15 04:33] VITALS: BP 167/70
== END 2020-07-15 04:33 | disposition home or self-care (01) ==
LOC: D.ER 03:06
PROVIDERS: Family Medicine
DX: E11.22 Type 2 diabetes mellitus with diabetic chronic kidney disease (principal); I12.0 Hypertensive chronic kidney disease with stage 5 chronic kidney disease or end stage renal disease; N18.6 End stage renal disease; Z99.2 Dependence on renal dialysis; Z86.73 Personal history of transient ischemic attack (TIA), and cerebral infarction without residual deficits; E11.40 Type 2 diabetes mellitus with diabetic neuropathy, unspecified; E07.9 Disorder of thyroid, unspecified; Z79.4 Long term (current) use of insulin; M54.6 Pain in thoracic spine

== ENCOUNTER 2021-01-14 12:15 | Outpatient (CLI) | payer BC ==
[~2021-01-14] VITALS: Ht 188 cm; Wt 97.7 kg
[~2021-01-14 12:15] MED LIST changes: +BACTRIM DS TAB1 EAC1 PO; +BAYER ASPIRIN325 MG; +BUPROPION HCL150 M1 PO; +MYFORTIC180 MG PO; +SYNTHROID175 MCG PO; +TACROLIMUS ANHYD1 MG PO
[2021-01-14 13:39] VITALS: Ht 188 cm; Wt 97.7 kg
--- NOTE | 2021-01-14 15:51 | NUR ---
HAS NAUSEA, VOMITING, AND SWEATING THROUGHOUT PROCEDURE. 3000ML SOAP SUDS ENEMA DONE. STOOL LIGHT BROWN BUT NO FORMED STOOL IN FINAL BM. STATES THAT IS ALL HE CAN TOLERATE. HAD TWO BM WITH LOTS OF FORMED STOOL. HAD TO GIVE ZOFRAN ODT DURING PROCEDURE FOR VOMITING. RESTED FOR THIRTY MINUTES AFTER PROCEDURE THEN UP AT BEDSIDE TO DRESS TO GO HOME. VOICES NO NEEDS AT PRESENT. DC INSTRUCTIONS GIVEN. DC'D HOME. ADVISED TO CALL OR COME BACK IF ANY PROBLEMS.
== END 2021-01-14 15:45 | disposition home or self-care (01) ==
LOC: D.OPS 12:15
PROVIDERS: ATTEND Family Medicine
DX: K59.00 Constipation, unspecified (principal)